=== PATIENT | male | born 1935 | race Caucasian/White ===

== ENCOUNTER 2020-02-05 08:59 | Outpatient (REF) | payer MEDICARE, SELFPAY ==
[2020-02-05 09:47] LABS: MANUAL DIFF FLAG NO
[2020-02-05 09:58] LABS: Basophils Percent Auto 0.3 % (0-2); Eosinophils Absolute Auto 0.2 X10*3/uL (0.0-0.4); Eosinophils Percent Auto 3.1 % (0-4); Hematocrit 42.4 % (42-52); Hemoglobin 14.1 g/dl (14.0-18.0); Imm Gran Abs Auto 0.03 X10*3/uL (0.00-0.03); Imm Gran Pct Auto 0.4 % (0.0-0.4); Lymphocytes Absolute Auto 1.3 X10*3/uL (1.2-4.9); Lymphocytes Percent Auto 19.9 % (20-40); Mean Corpuscular HGB Conc 33.3 g/dl (31.0-36.0); Mean Corpuscular Hemoglobin 32.6 pg (27.0-33.0); Mean Corpuscular Volume 98.1 fL (80-98); Monocytes Absolute Auto 0.6 X10*3/uL (0.1-1.2); Monocytes Percent Auto 8.9 % (2-11); Neutrophils Absolute Auto 4.6 X10*3/uL (2.0-8.3); Neutrophils Percent Auto 67.4 % (45-73); Platelet Count 266 X10*3/uL (160-400); Red Blood Count 4.32 X10*6/uL (4.60-5.80); Red Cell Distribution Width 11.9 % (11.0-16.0); White Blood Count 6.8 X10*3/uL (4.8-10.8)
[2020-02-05 10:32] LABS: Alanine Aminotransferase 22 U/L (0-40); Albumin Level 4.3 g/dL (3.5-5.0); Alkaline Phosphatase 106 U/L (39-117); Anion Gap 12 (12-20); Aspartate Amino Transferase 21 U/L (5-37); Bilirubin Total 1.1 mg/dL (0.0-1.0); Blood Urea Nitrogen 17 mg/dL (9-16); Calcium 9.1 mg/dL (8.4-10.2); Carbon Dioxide 27 mmol/L (22-29); Chloride 104 mmol/L (96-108); Cholesterol 145 mg/dL; Estimated Glomerular Filt Rate > 60; Glucose Fasting 100 mg/dL (60-99); HDL Cholesterol 51 mg/dL; LDL Cholesterol Calculated 83 mg/dl; Potassium 4.5 mmol/l (3.3-5.1); Sodium 138 mmol/L (135-145); Total Protein 6.7 g/dL (6.5-8.0); Triglycerides 57 mg/dL
[2020-02-05 10:44] LABS: Glucose Urine UA NEG (NEG); Leukocyte Esterase Urine NEG (NEG); Nitrite Urine NEG (NEG); Urine Blood NEG (NEG); Urine Ketones NEG (NEG); Urine Protein NEG (NEG-TRACE)
[2020-02-05 10:49] LABS: Appearance Urine CLEAR; Color Urine YELLOW
[2020-02-05 11:36] LABS: Prostate Specific Antigen Scr 5.25 ng/mL (<0.05-4.0)
== END 2020-02-05 09:00 | disposition home or self-care (01) ==
LOC: HO.10HDL 08:59
PROVIDERS: Visit Provider Internal Medicine
DX: N40.1 Benign prostatic hyperplasia with lower urinary tract symptoms (principal); K57.90 Diverticulosis of intestine, part unspecified, without perforation or abscess without bleeding; I10 Essential (primary) hypertension; Z12.5 Encounter for screening for malignant neoplasm of prostate
CPT/HCPCS: 36415; 80053; 80061; 81003; 84153; 85025

== ENCOUNTER 2020-05-27 09:22 | Outpatient (REF) | payer MEDICARE, SELFPAY ==
[2020-05-27 11:00] LABS: Anion Gap 14 (12-20); Blood Urea Nitrogen 17 mg/dL (9-16); Calcium 9.1 mg/dL (8.4-10.2); Carbon Dioxide 28 mmol/L (22-29); Chloride 103 mmol/L (96-108); Estimated Glomerular Filt Rate > 60; Glucose Random 92 mg/dL (60-115); Potassium 4.7 mmol/l (3.3-5.1); Sodium 140 mmol/L (135-145)
[2020-05-27 11:25] LABS: Prostate Specific Antigen Scr 7.19 ng/mL (<0.05-4.0)
== END 2020-05-27 09:23 | disposition home or self-care (01) ==
LOC: HO.10HDL 09:22
PROVIDERS: Visit Provider Internal Medicine
DX: R97.20 Elevated prostate specific antigen [PSA] (principal); I10 Essential (primary) hypertension; Z12.5 Encounter for screening for malignant neoplasm of prostate
CPT/HCPCS: 36415; 80048; 84153

== ENCOUNTER 2020-12-01 08:01 | Outpatient (REF) | payer MEDICARE, SELFPAY ==
[2020-12-01 10:35] LABS: MANUAL DIFF FLAG NO
[2020-12-01 10:45] LABS: Basophils Percent Auto 0.4 % (0-2); Eosinophils Absolute Auto 0.3 X10*3/uL (0.0-0.4); Hematocrit 43.1 % (42-52); Hemoglobin 14.1 g/dl (14.0-18.0); Imm Gran Abs Auto 0.04 X10*3/uL (0.00-0.03); Imm Gran Pct Auto 0.6 % (0.0-0.4); Lymphocytes Absolute Auto 1.7 X10*3/uL (1.2-4.9); Lymphocytes Percent Auto 23.7 % (20-40); Mean Corpuscular HGB Conc 32.7 g/dl (31.0-36.0); Mean Platelet Volume 10.5 fL (9.4-12.4); Monocytes Absolute Auto 0.7 X10*3/uL (0.1-1.2); Monocytes Percent Auto 9.9 % (2-11); Neutrophils Absolute Auto 4.3 X10*3/uL (2.0-8.3); Neutrophils Percent Auto 61.4 % (45-73); Platelet Count 264 X10*3/uL (160-400); Red Cell Distribution Width 12.4 % (11.0-16.0)
[2020-12-01 11:09] LABS: Alanine Aminotransferase 23 U/L (0-40); Albumin Level 4.3 g/dL (3.5-5.0); Alkaline Phosphatase 112 U/L (39-117); Anion Gap 12 (12-20); Aspartate Amino Transferase 23 U/L (5-37); Bilirubin Total 1.1 mg/dL (0.0-1.0); Blood Urea Nitrogen 15 mg/dL (9-16); Calcium 9.2 mg/dL (8.4-10.2); Carbon Dioxide 25 mmol/L (22-29); Chloride 105 mmol/L (96-108); Estimated Glomerular Filt Rate > 60; Glucose Random 103 mg/dL (60-115); Potassium 4.3 mmol/L (3.3-5.1); Sodium 138 mmol/L (135-145); Total Protein 6.9 g/dL (6.5-8.0)
[2020-12-01 11:15] LABS: Vitamin D 25-OH Total 44.3 ng/mL (>30)
== END 2020-12-01 08:02 | disposition home or self-care (01) ==
LOC: HO.10HDL 08:01
PROVIDERS: PCP Internal Medicine; Visit Provider Internal Medicine
DX: I10 Essential (primary) hypertension (principal); E55.9 Vitamin D deficiency, unspecified; K57.90 Diverticulosis of intestine, part unspecified, without perforation or abscess without bleeding
CPT/HCPCS: 36415; 80053; 82306; 85025

== ENCOUNTER 2021-04-02 11:27 | Outpatient (REF) | payer MEDICARE, SELFPAY ==
--- NOTE | ~2021-04-02 | XR_ITS ---
EXAMINATION: XR CHEST CLINICAL INFORMATION: Bronchitis. COMPARISON: 04/25/2019 chest radiographs. TECHNIQUE: 2 views of the chest were obtained. FINDINGS: The lungs are clear. There is mild elevation of the right hemidiaphragm without significant change. The cardiac mediastinal silhouette is unchanged. XR/XR chest 2V IMPRESSION: No acute cardiopulmonary process.
== END 2021-04-02 11:28 | disposition home or self-care (01) ==
LOC: HO.HMGCX 11:27
PROVIDERS: PCP Internal Medicine; Visit Provider Physician Assistant Medical
DX: Z13.89 Encounter for screening for other disorder (principal)
CPT/HCPCS: 71046

== ENCOUNTER 2021-04-02 13:14 | Outpatient (REF) | payer MEDICARE, SELFPAY | END 2021-04-02 13:15 | disposition home or self-care (01) | LOC: HO.LNP 13:14 | PROVIDERS: Visit Provider Physician Assistant Medical | DX: Z20.822 Contact with and (suspected) exposure to COVID-19 (principal) | CPT/HCPCS: 71046; U0003; U0005 ==

== ENCOUNTER 2021-04-08 08:40 | Outpatient (REF) | payer MEDICARE, SELFPAY ==
[2021-04-08 11:43] LABS: MANUAL DIFF FLAG NO
[2021-04-08 11:51] LABS: Basophils Percent Auto 0.3 % (0-2); Eosinophils Absolute Auto 0.2 X10*3/uL (0.0-0.4); Hematocrit 43.6 % (42.0-52.0); Hemoglobin 14.5 g/dl (14.0-18.0); Imm Gran Abs Auto 0.08 X10*3/uL (0.00-0.03); Imm Gran Pct Auto 1.1 % (0.0-0.4); Lymphocytes Absolute Auto 1.5 X10*3/uL (1.2-4.9); Lymphocytes Percent Auto 20.3 % (20-40); Mean Corpuscular HGB Conc 33.3 g/dl (31.0-36.0); Mean Corpuscular Hemoglobin 33.2 pg (27.0-33.0); Mean Corpuscular Volume 99.8 fL (80.0-98.0); Mean Platelet Volume 10.7 fL (9.4-12.4); Monocytes Absolute Auto 0.6 X10*3/uL (0.1-1.2); Monocytes Percent Auto 8.5 % (2-11); Neutrophils Absolute Auto 4.9 x10*3/uL (2.0-8.3); Neutrophils Percent Auto 66.8 % (45-73); Platelet Count 251 X10*3/uL (160-400); Red Blood Count 4.37 X10*6/uL (4.60-5.80); Red Cell Distribution Width 12.3 % (11.0-16.0); White Blood Count 7.4 X10*3/uL (4.8-10.8)
[2021-04-08 12:22] LABS: Alanine Aminotransferase 21 U/L (0-40); Albumin Level 4.1 g/dL (3.5-5.0); Alkaline Phosphatase 117 U/L (39-117); Anion Gap 13 (12-20); Aspartate Amino Transferase 23 U/L (5-37); Bilirubin Total 1.1 mg/dL (0.0-1.0); Blood Urea Nitrogen 15 mg/dL (9-16); Calcium 9.5 mg/dL (8.4-10.2); Carbon Dioxide 27 mmol/L (22-29); Chloride 105 mmol/L (96-108); Cholesterol 157 mg/dL; Estimated Glomerular Filt Rate > 60; Glucose Fasting 90 mg/dL (60-99); HDL Cholesterol 50 mg/dL; LDL Cholesterol Calculated 93 mg/dl; Potassium 4.2 mmol/L (3.3-5.1); Sodium 141 mmol/L (135-145); Total Protein 6.8 g/dL (6.5-8.0); Triglycerides 72 mg/dL
[2021-04-08 12:26] LABS: PSA,Total (Free>4and<10) 8.47 ng/mL (0.00-4.00)
[2021-04-11 15:02] LABS: Free Prostate Spec Ag 1.8 ng/mL; Percent Free Prostate Spec Ag 20 % (calc) (>25); Prostate Specific Ag Total 9.1 ng/mL (< OR = 4.0)
== END 2021-04-08 08:41 | disposition home or self-care (01) ==
LOC: HO.HMGCLDS 08:40
PROVIDERS: PCP Internal Medicine; Visit Provider Internal Medicine
DX: Z12.5 Encounter for screening for malignant neoplasm of prostate (principal); I10 Essential (primary) hypertension; R97.20 Elevated prostate specific antigen [PSA]; K57.90 Diverticulosis of intestine, part unspecified, without perforation or abscess without bleeding
CPT/HCPCS: 36415; 80053; 80061; 84153; 84154; 85025

== ENCOUNTER 2021-10-14 13:28 | Outpatient (REF) | payer MEDICARE, SELFPAY ==
[2021-10-17 11:22] LABS: Percent Free Prostate Spec Ag 20 % (calc) (>25); Prostate Specific Ag Total 9.8 ng/mL (< OR = 4.0)
== END 2021-10-14 13:29 | disposition home or self-care (01) ==
LOC: HO.HMGCLDS 13:28
PROVIDERS: Visit Provider Urology
DX: R97.20 Elevated prostate specific antigen [PSA] (principal); Z12.5 Encounter for screening for malignant neoplasm of prostate
CPT/HCPCS: 36415; 84154

== ENCOUNTER 2022-02-21 09:10 | Outpatient (REF) | payer MEDICARE, SELFPAY ==
[2022-02-21 11:06] LABS: MANUAL DIFF FLAG NO
[2022-02-21 11:35] LABS: Basophils Percent Auto 0.3 % (0-2); Eosinophils Absolute Auto 0.2 X10*3/uL (0.0-0.4); Eosinophils Percent Auto 3.1 % (0-4); Hematocrit 43.7 % (42.0-52.0); Hemoglobin 14.5 g/dl (14.0-18.0); Imm Gran Abs Auto 0.04 X10*3/uL (0.00-0.03); Imm Gran Pct Auto 0.7 % (0.0-0.4); Lymphocytes Absolute Auto 1.3 X10*3/uL (1.2-4.9); Lymphocytes Percent Auto 21.6 % (20-40); Mean Corpuscular HGB Conc 33.2 g/dl (31.0-36.0); Mean Corpuscular Hemoglobin 32.5 pg (27.0-33.0); Mean Platelet Volume 10.4 fL (9.4-12.4); Monocytes Absolute Auto 0.7 X10*3/uL (0.1-1.2); Monocytes Percent Auto 10.8 % (2-11); Neutrophils Absolute Auto 3.9 x10*3/uL (2.0-8.3); Neutrophils Percent Auto 63.5 % (45-73); Platelet Count 237 X10*3/uL (160-400); Red Blood Count 4.46 X10*6/uL (4.60-5.80); Red Cell Distribution Width 12.6 % (11.0-16.0); White Blood Count 6.1 X10*3/uL (4.8-10.8)
[2022-02-21 11:49] LABS: Anion Gap 16 (12-20); Blood Urea Nitrogen 16 mg/dL (9-16); Calcium 9.5 mg/dL (8.4-10.2); Carbon Dioxide 26 mmol/L (22-29); Chloride 103 mmol/L (96-108); Estimated Glomerular Filt Rate > 60; Glucose Random 99 mg/dL (60-115); Potassium 4.5 mmol/L (3.3-5.1); Sodium 140 mmol/L (135-145)
== END 2022-02-21 09:11 | disposition home or self-care (01) ==
LOC: HO.HMGCLDS 09:10
PROVIDERS: PCP Internal Medicine; Visit Provider Internal Medicine
DX: I10 Essential (primary) hypertension (principal); E55.9 Vitamin D deficiency, unspecified; Z86.73 Personal history of transient ischemic attack (TIA), and cerebral infarction without residual deficits
CPT/HCPCS: 36415; 80048; 82306; 85025

== ENCOUNTER 2022-05-08 10:23 | Outpatient (REF) | payer MEDICARE, SELFPAY | END 2022-05-08 10:24 | disposition home or self-care (01) | LOC: HO.10HDL 10:23 | PROVIDERS: Visit Provider Internal Medicine | DX: Z01.84 Encounter for antibody response examination (principal) | CPT/HCPCS: 36415; 86787 ==

== ENCOUNTER 2022-07-31 08:49 | Outpatient (REF) | payer MEDICARE, SELFPAY ==
[2022-07-31 11:15] LABS: MANUAL DIFF FLAG NO
[2022-07-31 12:00] LABS: Basophils Percent Auto 0.5 % (0-2); Eosinophils Absolute Auto 0.2 X10*3/uL (0.0-0.4); Eosinophils Percent Auto 2.7 % (0-4); Hematocrit 42.8 % (42.0-52.0); Hemoglobin 14.3 g/dl (14.0-18.0); Imm Gran Abs Auto 0.03 X10*3/uL (0.00-0.03); Imm Gran Pct Auto 0.5 % (0.0-0.4); Lymphocytes Absolute Auto 1.4 X10*3/uL (1.2-4.9); Lymphocytes Percent Auto 21.4 % (20-40); Mean Corpuscular HGB Conc 33.4 g/dl (31.0-36.0); Mean Corpuscular Hemoglobin 33.4 pg (27.0-33.0); Mean Platelet Volume 10.8 fL (9.4-12.4); Monocytes Absolute Auto 0.6 X10*3/uL (0.1-1.2); Neutrophils Absolute Auto 4.4 x10*3/uL (2.0-8.3); Neutrophils Percent Auto 65.9 % (45-73); Platelet Count 229 X10*3/uL (160-400); Red Blood Count 4.28 X10*6/uL (4.60-5.80); Red Cell Distribution Width 12.5 % (11.0-16.0); White Blood Count 6.6 X10*3/uL (4.8-10.8)
[2022-07-31 12:30] LABS: Alanine Aminotransferase 22 U/L (0-40); Alkaline Phosphatase 119 U/L (39-117); Anion Gap 13 (12-20); Aspartate Amino Transferase 20 U/L (5-37); Bilirubin Total 1.3 mg/dL (0.0-1.0); Blood Urea Nitrogen 19 mg/dL (9-16); Calcium 9.2 mg/dL (8.4-10.2); Carbon Dioxide 26 mmol/L (22-29); Chloride 105 mmol/L (96-108); Cholesterol 163 mg/dL; Estimated Glomerular Filt Rate > 60; Glucose Fasting 99 mg/dL (60-99); HDL Cholesterol 56 mg/dL; LDL Cholesterol Calculated 95 mg/dl; Potassium 4.2 mmol/L (3.3-5.1); Prostate Specific Antigen 11.65 ng/mL (<0.05-4.0); Sodium 140 mmol/L (135-145); Total Protein 6.4 g/dL (6.5-8.0); Triglycerides 62 mg/dL
== END 2022-07-31 08:50 | disposition home or self-care (01) ==
LOC: HO.HMGCLDS 08:49
PROVIDERS: PCP Internal Medicine; Visit Provider Internal Medicine
DX: Z00.00 Encounter for general adult medical examination without abnormal findings (principal); Z12.5 Encounter for screening for malignant neoplasm of prostate; Z86.73 Personal history of transient ischemic attack (TIA), and cerebral infarction without residual deficits
CPT/HCPCS: 36415; 80053; 80061; 84153; 85025

== ENCOUNTER 2022-09-03 23:07 | Emergency (ER) | payer MEDICARE, SELFPAY ==
--- NOTE | ~2022-09-03 | US_ITS ---
EXAMINATION: US VENOUS ULTRASOUND WITH DOPPLER LOWER EXTREMITY, RIGHT CLINICAL INFORMATION: Leg swelling COMPARISON: None available. TECHNIQUE: Ultrasound of the deep veins is performed from the hip to the calf with compression sonography and color and pulse Doppler assessment. Spectral analysis with color-flow imaging is performed. FINDINGS: There is normal venous compression and respiratory variation and augmented flow. The visualized common femoral vein, superficial femoral vein, profunda femoral vein, popliteal vein, and the trifurcation region shows no evidence of deep venous thrombosis. There is no significant popliteal fossa cyst. If the patient's symptoms persist, followup ultrasound in 5 days 7 days might be of value to exclude proximal propagation from a non-visualized calf vein. US/US venous duplex LE RT IMPRESSION: No DVT demonstrated in the right lower extremity.
[2022-09-03 23:09] VITALS: BP 130/80; PULSE 84; O2SAT 97
[2022-09-03 23:18] VITALS: BP 133/72; PULSE 74; RESP 16; TEMP 36.9; O2SAT 96; BMI 27.3
--- NOTE | 2022-09-03 23:42 | ECG_ITS ---
Test Reason : edema Blood Pressure : / mmHG Vent. 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 rate has decreased BY 36 BPM Right bundle branch block is now Present Referred By: Winnie Luis Electronically Signed By:AUDRA JOHNSTON
[2022-09-03 23:56] LABS: MANUAL DIFF FLAG NO
[2022-09-03 23:57] LABS: Basophils Percent Auto 0.3 % (0-2); Eosinophils Absolute Auto 0.2 X10*3/uL (0.0-0.4); Eosinophils Percent Auto 2.6 % (0-4); Hematocrit 40.6 % (42.0-52.0); Hemoglobin 13.4 g/dl (14.0-18.0); Imm Gran Abs Auto 0.05 X10*3/uL (0.00-0.03); Imm Gran Pct Auto 0.6 % (0.0-0.4); Lymphocytes Percent Auto 12.6 % (20-40); Mean Corpuscular Hemoglobin 32.4 pg (27.0-33.0); Mean Corpuscular Volume 98.3 fL (80.0-98.0); Mean Platelet Volume 10.2 fL (9.4-12.4); Monocytes Absolute Auto 0.7 X10*3/uL (0.1-1.2); Monocytes Percent Auto 9.4 % (2-11); Neutrophils Absolute Auto 5.8 x10*3/uL (2.0-8.3); Neutrophils Percent Auto 74.5 % (45-73); Platelet Count 220 X10*3/uL (160-400); Red Blood Count 4.13 X10*6/uL (4.60-5.80); Red Cell Distribution Width 12.4 % (11.0-16.0); White Blood Count 7.8 X10*3/uL (4.8-10.8)
[2022-09-04 00:19] LABS: Alanine Aminotransferase 23 U/L (0-40); Albumin Level 3.9 g/dL (3.5-5.0); Alkaline Phosphatase 114 U/L (39-117); Anion Gap 14 (12-20); Aspartate Amino Transferase 28 U/L (5-37); Bilirubin Direct 0.2 mg/dL (0.0-0.5); Bilirubin Total 0.7 mg/dL (0.0-1.0); Blood Urea Nitrogen 20 mg/dL (9-16); Calcium 9.1 mg/dL (8.4-10.2); Carbon Dioxide 23 mmol/L (22-29); Chloride 104 mmol/L (96-108); Creatinine Clr Calc Pharmacy 55.8; Estimated Glomerular Filt Rate > 60; Glucose Random 104 mg/dL (60-115); Potassium 4.8 mmol/L (3.3-5.1); Sodium 136 mmol/L (135-145); Total Protein 6.3 g/dL (6.5-8.0)
[2022-09-04 00:23] LABS: B Type Natriuretic Peptide 59 pg/mL (<100)
[2022-09-04 00:27] LABS: Troponin-I High Sensitivity 8.2 ng/L (<3.5-35.0)
[2022-09-04 00:33] VITALS: BP 142/88; PULSE 74; RESP 15; O2SAT 99
--- NOTE | 2022-09-04 01:42 | ED.EXTPRO ---
HPI - Extremity Problem General Chief complaint: Extremity Problem Stated complaint: Pedal Edema Time Seen by Provider: 09/03/22 23:11 History of Present Illness HPI Narrative: Patient is 87 years old history of having right leg swelling in the past. Usually walks with a walker. Family claims the right leg seems to be more swollen than usual. Sent in for further eval. Patient not on blood thinners. There is no trauma to the lower extremity. There is no history of DVT. There is no chest pain. There is no shortness of breath patient was sent in for further evaluation Related Data Home Medications Medication Instructions Recorded Confirmed alprazolam 0.25 mg tablet 0.25 mg PO BEDTIME PRN 04/02/21 cholecalciferol (vitamin D3) 25 25 mcg PO DAILY 04/02/21 mcg (1,000 unit) capsule fluticasone 250 mcg-salmeterol 50 1 inh inhalation BID 04/02/21 mcg/dose blistr powdr for inhalation (Advair Diskus) metoprolol succinate 50 mg 50 mg PO BID 04/02/21 tablet,extended release 24 hr multivitamin 1 tab PO DAILY 04/02/21 tamsulosin 0.4 mg capsule 0.4 mg PO BEDTIME 04/02/21 Previous Rx's Medication Instructions Recorded azithromycin 250 mg tablet See Rx Instructions PO .COMPLEX #6 04/02/21 tabs cromolyn 5.2 mg/spray (4 %) nasal 1 spray intranasal TID #26 mL 04/02/21 spray Allergies Allergy/AdvReac Type Severity Reaction Status Date / Time No Known Allergies Allergy Unverified 01/15/20 15:01 [No Known Allergies*] Review of Systems Review of Systems: No fever no chills no cough no congestion no chest pain. Yes all other systems are reviewed and are negative [facility] Past Medical History Attestation statement: The following information was validated with the patient. Social History Social History Advance Directives: No Advance Directives Information Provided: No Advance Directives Date on File: 02/05/20 Physical Exam Vital Signs: Vital Signs: Last Vital Signs Temp 98.5 F 09/03/22 23:18 Pulse 74 09/04/22 00:33 Resp 15 09/04/22 00:33 BP 142/88 H 09/04/22 00:33 Pulse Ox 99 09/04/22 00:33 O2 Del Method Room Air 09/04/22 00:33 BMI result Body Mass Index 27.3 Appearance: Alert. Oriented X3. No acute distress. Eyes: Pupils equal, round and reactive to light. ENT: Pharynx normal. Neck: Normal inspection. Neck supple. No lymph nodes noted. No crepitus CVS: Normal heart rate and rhythm. Pulses normal. Normal S1 and S2 Respiratory: No respiratory distress. Breath sounds normal. No Wheezing. No rales Abdomen: Soft and nontender. No rigidity. No distention. good BS x4 Skin: Skin warm and dry. Normal skin color. Normal skin turgor. Extremities: Examination of the right lower extremity showed 2+ pitting edema compared to 1+ on left side. Neuro: Oriented X 3. No motor deficit. No sensory deficit. Moving all extermities. No slurred speech Medical Decision Making Medical Decision Making [facility] Narrative: Patient is 87 years old presents today with having right leg swelling. Doppler of the right lower extremity was grossly negative for acute evidence of DVT. Patient's BMP is normal. No evidence for congestive heart failure. Patient's troponin is normal. Electrolytes unremarkable liver profile is normal no evidence for biliary disease. My interpretation patient's EKG showed a sinus pattern heart rate is 70 HI QRS QT with normal limits is no acute ST segment elevation noted. Patient was then ambulated. Baseline walks with a walker. Doing well. Will discharge patient home. In stable condition. Told to closely follow up on an outpatient basis. Differential Diagnosis Differential Diagnoses: The differential diagnosis associated with the presentation includes Congestive heart failure, liver disease, the vein thrombosis Lab Data [facility] Lab Attestation statement: I reviewed the patient's lab results. 09/03/22 23:51 09/03/22 23:51 Labs: Lab Results 09/03/22 09/03/22 09/03/22 Range/Units 23:51 23:51 23:51 WBC 7.8 (4.8-10.8) X10*3/uL RBC 4.13 L (4.60-5.80) X10*6/uL Hgb 13.4 L (14.0-18.0) g/dl Hct 40.6 L (42.0-52.0) % MCV 98.3 H (80.0-98.0) fL MCH 32.4 (27.0-33.0) pg MCHC 33.0 (31.0-36.0) g/dl RDW 12.4 (11.0-16.0) % Plt Count 220 (160-400) X10*3/uL MPV 10.2 (9.4-12.4) fL Immature Gran % (Auto) 0.6 H (0.0-0.4) % Neut % (Auto) 74.5 H (45-73) % Lymph % (Auto) 12.6 L (20-40) % Lewis % (Auto) 9.4 (2-11) % Eos % (Auto) 2.6 (0-4) % Baso % (Auto) 0.3 (0-2) % Lymph # (Auto) 1.0 L (1.2-4.9) X10*3/uL [place] # (Auto) 0.7 (0.1-1.2) X10*3/uL Eos # (Auto) 0.2 (0.0-0.4) X10*3/uL Baso # (Auto) 0.0 (0.0-0.2) X10*3/uL Abs Immat Gran (auto) 0.05 H (0.00-0.03) X10*3/uL Absolute Neuts (auto) 5.8 (2.0-8.3) x10*3/uL Absolute Nucleated RBC 0.000 (0.0-0.012) X10*3/uL Nucleated RBC % (auto) 0.0 (0.0-0.2) /100WBC Sodium 136 (135-145) mmol/L Potassium 4.8 (3.3-5.1) mmol/L Chloride 104 (96-108) mmol/L Carbon Dioxide 23 (22-29) mmol/L Anion Gap 14 (12-20) BUN 20 H (9-16) mg/dL Creatinine 0.98 (0.5-1.4) mg/dL Estim Creat Clear Calc 55.8 Estimated GFR > 60 Random Glucose 104 (60-115) mg/dL Calcium 9.1 (8.4-10.2) mg/dL Total Bilirubin 0.7 (0.0-1.0) mg/dL Direct Bilirubin 0.2 (0.0-0.5) mg/dL AST 28 (5-37) U/L ALT 23 (0-40) U/L Alkaline Phosphatase 114 (39-117) U/L Troponin I High Sens 8.2 (<3.5-35.0) ng/L B-Natriuretic Peptide (<100) pg/mL Total Protein 6.3 L (6.5-8.0) g/dL Albumin 3.9 (3.5-5.0) g/dL 09/03/22 Range/Units 23:51 WBC (4.8-10.8) X10*3/uL RBC (4.60-5.80) X10*6/uL Hgb (14.0-18.0) g/dl Hct (42.0-52.0) % MCV (80.0-98.0) fL MCH (27.0-33.0) pg MCHC (31.0-36.0) g/dl RDW (11.0-16.0) % Plt Count (160-400) X10*3/uL MPV (9.4-12.4) fL Immature Gran % (Auto) (0.0-0.4) % Neut % (Auto) (45-73) % Lymph % (Auto) (20-40) % [place] % (Auto) (2-11) % Eos % (Auto) (0-4) % Baso % (Auto) (0-2) % Lymph # (Auto) (1.2-4.9) X10*3/uL [place] # (Auto) (0.1-1.2) X10*3/uL Eos # (Auto) (0.0-0.4) X10*3/uL Baso # (Auto) (0.0-0.2) X10*3/uL Abs Immat Gran (auto) (0.00-0.03) X10*3/uL Absolute Neuts (auto) (2.0-8.3) x10*3/uL Absolute Nucleated RBC (0.0-0.012) X10*3/uL Nucleated RBC % (auto) (0.0-0.2) /100WBC Sodium (135-145) mmol/L Potassium (3.3-5.1) mmol/L Chloride (96-108) mmol/L Carbon Dioxide (22-29) mmol/L Anion Gap (12-20) BUN (9-16) mg/dL Creatinine (0.5-1.4) mg/dL Estim Creat Clear Calc Estimated GFR Random Glucose (60-115) mg/dL Calcium (8.4-10.2) mg/dL Total Bilirubin (0.0-1.0) mg/dL Direct Bilirubin (0.0-0.5) mg/dL AST (5-37) U/L ALT (0-40) U/L Alkaline Phosphatase (39-117) U/L Troponin I High Sens (<3.5-35.0) ng/L B-Natriuretic Peptide 59 (<100) pg/mL Total Protein (6.5-8.0) g/dL Albumin (3.5-5.0) g/dL Independent Interpretation I performed an independent interpretation of an: EKG Interpretation: My interpretation patient's EKG showed a sinus pattern heart rate 70 HI QRS QT within normal limits there is no acute ST segment elevation. Radiology Impression Discussion of test interpretation with radiology: I have reviewed the radiologist's reading. Radiologist Impression: Ultrasound was grossly negative Independent Historian Clinical information obtained from an independent historian. History obtained from or confirmed by: Spouse External Record Review External record reviewed: Inpatient record Chronic Conditions CVA Discharge Plan Discharge Clinical Impression: Lower extremity edema Patient Disposition: Home, Self-Care Instructions: Leg Edema (ED) Prescriptions: No Action fluticasone propion-salmeterol [Advair Diskus] 250-50 mcg/dose blister with device 1 inh inhalation BID metoprolol succinate 50 mg tablet extended release 24 hr 50 mg PO BID tamsulosin 0.4 mg capsule 0.4 mg PO BEDTIME alprazolam 0.25 mg tablet 0.25 mg PO BEDTIME PRN multivitamin Tablet 1 tab PO DAILY cholecalciferol (vitamin D3) 25 mcg (1,000 unit) capsule 25 mcg PO DAILY azithromycin 250 mg tablet See Rx Instructions PO .COMPLEX Qty: 6 0RF Rx Instructions: take 500 mg today (day 1), then 250 mg for 4 days (days 2-5) PO cromolyn 5.2 mg/spray (4 %) spray,non-aerosol 1 spray intranasal TID Qty: 26 1RF Referrals: Duncan Hodgson MD [Primary Care Provider] -
== END 2022-09-04 02:37 | disposition home or self-care (01) ==
PROVIDERS: Emergency Provider Emergency Medicine Emergency Medical Services; PCP Internal Medicine
DX: R60.0 Localized edema (principal); R06.02 Shortness of breath; I45.10 Unspecified right bundle-branch block; R94.31 Abnormal electrocardiogram [ECG] [EKG]; Z79.899 Other long term (current) drug therapy
CPT/HCPCS: 36415; 80048; 80076; 83880; 84484; 85025; 93005; 93971; 99284

== ENCOUNTER 2023-02-15 10:02 | Outpatient (REF) | payer MEDICARE, SELFPAY ==
[2023-02-15 14:10] LABS: Prostate Specific Antigen 12.91 ng/mL (<0.05-4.0)
[2023-02-15 14:23] LABS: Anion Gap 14 (12-20); Blood Urea Nitrogen 18 mg/dL (9-16); Calcium 9.8 mg/dL (8.4-10.2); Carbon Dioxide 26 mmol/L (22-29); Chloride 102 mmol/L (96-108); Estimated Glomerular Filt Rate > 60; Glucose Random 129 mg/dL (60-115); Potassium 4.8 mmol/L (3.3-5.1); Sodium 137 mmol/L (135-145)
== END 2023-02-15 10:03 | disposition home or self-care (01) ==
LOC: HO.HMGCLDS 10:02
PROVIDERS: PCP Internal Medicine; Visit Provider Internal Medicine
DX: I10 Essential (primary) hypertension (principal); R97.20 Elevated prostate specific antigen [PSA]; Z86.73 Personal history of transient ischemic attack (TIA), and cerebral infarction without residual deficits; Z12.5 Encounter for screening for malignant neoplasm of prostate
CPT/HCPCS: 36415; 80048; 84153

== ENCOUNTER 2023-07-24 09:16 | Outpatient (REF) | payer MEDICARE, SELFPAY ==
[2023-07-24 11:46] LABS: MANUAL DIFF FLAG NO
[2023-07-24 12:18] LABS: Basophils Percent Auto 0.3 % (0-2); Eosinophils Absolute Auto 0.2 X10*3/uL (0.0-0.4); Eosinophils Percent Auto 2.6 % (0-4); Hematocrit 44.2 % (42.0-52.0); Hemoglobin 14.7 g/dl (14.0-18.0); Imm Gran Abs Auto 0.04 X10*3/uL (0.00-0.03); Imm Gran Pct Auto 0.6 % (0.0-0.4); Lymphocytes Absolute Auto 1.2 X10*3/uL (1.2-4.9); Lymphocytes Percent Auto 17.6 % (20-40); Mean Corpuscular HGB Conc 33.3 g/dl (31.0-36.0); Mean Corpuscular Hemoglobin 32.8 pg (27.0-33.0); Mean Corpuscular Volume 98.7 fL (80.0-98.0); Mean Platelet Volume 10.8 fL (9.4-12.4); Monocytes Absolute Auto 0.6 X10*3/uL (0.1-1.2); Monocytes Percent Auto 8.9 % (2-11); Neutrophils Absolute Auto 4.6 x10*3/uL (2.0-8.3); Platelet Count 257 X10*3/uL (160-400); Red Blood Count 4.48 X10*6/uL (4.60-5.80); Red Cell Distribution Width 12.5 % (11.0-16.0); White Blood Count 6.6 X10*3/uL (4.8-10.8)
[2023-07-24 12:25] LABS: Estimated Average Glucose 105 mg/dL; Hemoglobin A1c % 5.3 % (<6.0)
[2023-07-24 12:43] LABS: Alanine Aminotransferase 21 U/L (0-40); Albumin Level 4.2 g/dL (3.5-5.0); Alkaline Phosphatase 124 U/L (39-117); Anion Gap 12 (12-20); Aspartate Amino Transferase 22 U/L (5-37); Bilirubin Total 1.2 mg/dL (0.0-1.0); Blood Urea Nitrogen 18 mg/dL (9-16); Calcium 9.7 mg/dL (8.4-10.2); Carbon Dioxide 29 mmol/L (22-29); Chloride 104 mmol/L (96-108); Cholesterol 165 mg/dL (<200); Estimated Glomerular Filt Rate > 60; Glucose Fasting 103 mg/dL (60-99); HDL Cholesterol 63 mg/dL (>40); LDL Cholesterol Calculated 92 mg/dL (<100); Potassium 4.3 mmol/L (3.3-5.1); Sodium 141 mmol/L (135-145); Total Protein 7.2 g/dL (6.5-8.0); Triglycerides 52 mg/dL (<150)
== END 2023-07-24 09:17 | disposition home or self-care (01) ==
LOC: HO.HMGCLDS 09:16
PROVIDERS: PCP Internal Medicine; Visit Provider Internal Medicine
DX: I10 Essential (primary) hypertension (principal); R73.03 Prediabetes; J45.909 Unspecified asthma, uncomplicated; Z86.73 Personal history of transient ischemic attack (TIA), and cerebral infarction without residual deficits
CPT/HCPCS: 36415; 80053; 80061; 83036; 85025

== ENCOUNTER 2023-09-03 09:34 | Emergency (ER) | payer MEDICARE, SELFPAY ==
[2023-09-03] VITALS (9 sets, daily range): BP systolic 146–172; BP diastolic 66–82; PULSE 64–85; RESP 16–20; TEMP 36.6–36.9; O2SAT 94–97; BMI 25.7
--- NOTE | 2023-09-03 | ECG_ITS ---
Test Reason : GENERAL WEAKNESS Blood Pressure : / mmHG Vent. 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
--- NOTE | ~2023-09-03 | XR_ITS ---
EXAMINATION: XR HIP, RIGHT CLINICAL INFORMATION: Pain COMPARISON: CT MRN x-ray of the right hip and femur from 2018 TECHNIQUE: Two views of the right hip. One view of the pelvis FINDINGS: There are mild degenerative changes of the right hip joint with joint space narrowing and small osteophytes. No fracture or dislocation. 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 Normal pelvis. Degenerative changes of the lower lumbar spine. Mild atherosclerotic disease. XR/XR hip RT w PEL1V IMPRESSION: Mild right hip arthritis. No fracture or dislocation.
[2023-09-03 09:53] LABS: MANUAL DIFF FLAG NO
[2023-09-03 09:55] LABS: Basophils Percent Auto 0.4 % (0-2); Eosinophils Absolute Auto 0.1 X10*3/uL (0.0-0.4); Eosinophils Percent Auto 1.5 % (0-4); Hematocrit 37.3 % (42.0-52.0); Imm Gran Abs Auto 0.07 X10*3/uL (0.00-0.03); Imm Gran Pct Auto 0.8 % (0.0-0.4); Lymphocytes Absolute Auto 0.8 X10*3/uL (1.2-4.9); Lymphocytes Percent Auto 9.3 % (20-40); Mean Corpuscular HGB Conc 34.9 g/dl (31.0-36.0); Mean Corpuscular Hemoglobin 33.8 pg (27.0-33.0); Mean Corpuscular Volume 96.9 fL (80.0-98.0); Mean Platelet Volume 9.9 fL (9.4-12.4); Monocytes Absolute Auto 0.7 X10*3/uL (0.1-1.2); Monocytes Percent Auto 8.3 % (2-11); Neutrophils Absolute Auto 6.6 x10*3/uL (2.0-8.3); Neutrophils Percent Auto 79.7 % (45-73); Platelet Count 251 X10*3/uL (160-400); Red Blood Count 3.85 X10*6/uL (4.60-5.80); Red Cell Distribution Width 12.3 % (11.0-16.0); White Blood Count 8.3 X10*3/uL (4.8-10.8)
[2023-09-03 10:14] LABS: B Type Natriuretic Peptide 187 pg/mL (<100)
[2023-09-03 10:30] LABS: Appearance Urine Clear; Color Urine Yellow; Glucose Urine UA Negative (Negative); Leukocyte Esterase Urine Trace (Negative); Nitrite Urine Negative (Negative); PH 7.5 (5.0-9.0); Specific Gravity - Urine 1.015 (1.005-1.025); UMIC TRIGGER UACC YES; Urine Blood Negative (Negative); Urine Ketones Negative (Negative); Urine Protein 30 (1+) mg/dL (Neg-Trace)
[2023-09-03 10:34] LABS: Bacteria Urine None Seen (None Seen); Hyaline Casts Urine 0-2 /LPF (0-2); RBC Urine 0-2 /HPF (0-2); Squamous Epithelial Cell Urine 0-2 /HPF (0-2); WBC Urine 0-5 /HPF (0-5)
--- NOTE | 2023-09-03 10:55 | PC.NURSE ---
a&ox4. vss and up to date. pt biba from home d/t lower back pain that radiates to right hip as well as weakness. pt had an unwitnessed mechanical fall at home x 1 week ago. -headstrike, -loc, -thinners. pt's bedside states that he became weak in the legs, put back against the wall and lowered himself to the ground. pt's states pt was ambulating today when it seemed that his legs were becoming weak so she sat him down and called EMS. pt also verbalizing increase in sob lately. sx worsen w/ movement. 20gIV placed in the left forearm - labs obtained/sent to lab. UA/ekg obtained sent to lab. no sob/wob noted. respirations even and unlabored. pt waiting to be seen by ED provider. bedside for support. plan of care ongoing. call leiva placed within reach.
[2023-09-03 11:37] LABS: Alanine Aminotransferase 25 U/L (0-40); Albumin Level 3.5 g/dL (3.5-5.0); Alkaline Phosphatase 100 U/L (39-117); Anion Gap 13 (12-20); Aspartate Amino Transferase 27 U/L (5-37); Bilirubin Total 0.9 mg/dL (0.0-1.0); Blood Urea Nitrogen 16 mg/dL (9-16); Calcium 9.1 mg/dL (8.4-10.2); Carbon Dioxide 23 mmol/L (22-29); Chloride 106 mmol/L (96-108); Creatinine Clr Calc Pharmacy 70.1; Estimated Glomerular Filt Rate > 60; Glucose Random 105 mg/dL (60-115); Potassium 4.1 mmol/L (3.3-5.1); Sodium 138 mmol/L (135-145); Total Protein 6.3 g/dL (6.5-8.0)
[2023-09-03 11:43] LABS: Troponin-I High Sensitivity 9.6 ng/L (<3.5-35.0)
--- NOTE | 2023-09-03 13:58 | ED_ITS ---
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 Related Data Home Medications ?Medication ?Instructions ?Recorded ?Confirmed alprazolam 0.25 mg tablet 0.25 mg PO BEDTIME PRN 04/02/21 cholecalciferol (vitamin D3) 25 25 mcg PO DAILY 04/02/21 mcg (1,000 unit) capsule fluticasone 250 mcg-salmeterol 50 1 inh inhalation BID 04/02/21 mcg/dose blistr powdr for inhalation (Advair Diskus) metoprolol succinate 50 mg 50 mg PO BID 04/02/21 tablet,extended release 24 hr multivitamin 1 tab PO DAILY 04/02/21 tamsulosin 0.4 mg capsule 0.4 mg PO BEDTIME 04/02/21 Previous Rx's ?Medication ?Instructions ?Recorded azithromycin 250 mg tablet See Rx Instructions PO .COMPLEX #6 04/02/21 tabs cromolyn 5.2 mg/spray (4 %) nasal 1 spray intranasal TID #26 mL 04/02/21 spray Allergies Allergy/AdvReac Type Severity Reaction Status Date / Time No Known Allergies Allergy Verified 09/03/23 09:42 [No Known Allergies*] Review of Systems 2 Review of Systems: Pertinent positives and negatives as stated in HPI [facility] Past Medical History Source: nursing notes reviewed Social History Social History Smoked in Last 30 Days: No Use of substances other than those prescribed or required for medical reasons: No Advance Directives: No Advance Directives Information Provided: Yes Advance Directives Date on File: 02/05/20 Do you have a plan to hurt others: No Plan Physical Exam ED Vital Signs: Vital Signs - 24 hr 09/03/23 09:44 09/03/23 10:00 09/03/23 11:30 Temperature 98.1 F 97.9 F 97.9 F Pulse Rate 85 78 79 Respiratory Rate 16 18 16 Blood Pressure 146/66 H 155/81 H Pulse Oximetry 96 95 95 Oxygen Delivery Method Room Air Room Air Room Air BMI result Body Mass Index 25.7 VITAL SIGNS: Reviewed. GENERAL: Well developed, well nourished, in no acute distress. HEAD: Normocephalic/atraumatic EYES: PERRLA, EOMI EARS: Ext canals without abnormality NOSE: Nares patent bilateral OROPHARYNX: no oral lesions noted, posterior pharynx clear NECK: Supple, no adenopathy LUNGS: Normal breath sounds. No adventitious sounds or accessory muscle use. SpO2<95> CARDIOVASCULAR: Regular rate and rhythm without noted murmurs ABDOMEN: Soft, non-tender, non-distended with bowel sounds. GLUTEUS: There is reproducible pain on palpation over superior aspect of right gluteus, no tenderness to palpation over greater trochanter/ASIS MUSCULOSKELETAL: No tenderness, deformities, or effusions noted on gross inspection. EXTREMITIES: No cyanosis, clubbing or edema. SKIN: Inspection of the skin reveals no rashes NEUROLOGIC: Alert and oriented x 4. Strength and sensation to light touch were grossly intact x 4, but asymmetrical with the right being stronger than the left at baseline. Medical Decision Making Medical Decision Making [facility] Narrative: 88-year-old male with history and clinical presentation, DDX: No clinical suspicion for hip/pelvis fracture, highly suspicious for muscle strain/sciatica, patient provided with combination analgesics and lidocaine patch. I reviewed all investigations and hematologic indices are negative for leukocytosis, there is a stable normocytic anemia and no thrombocytopenia. Chemistry indices are negative for CHAVEZ or electrolyte/liver enzyme derangements, there is a mild elevation of BNP, patient will receive 20 cc Lasix and otherwise will receive combination analgesics and a lidocaine patch. Consult for physical therapy and case management placed. Patient is otherwise medically cleared for further evaluation by physical therapy and case management. As after discussion patient will be going to short-term rehab. Patient placed in physician observation because the patient needed more time for evaluation by physical therapy and case management. At the time observation was started the patient's vital signs were stable, patient is alert and oriented but slightly agitated, neuro: Nonfocal, CV RRR, lungs clear Differential Diagnosis Differential Diagnoses: The differential diagnosis associated with the presentation includes Please see the discussion above Admission/Observation Consideration of admission/observation: Escalation of care including admission/observation considered Please see the discussion above Consult Healthcare Provider Management of the patient was discussed with: Virtual Reality Specialist Please see the discussion above Lab Data MDM Lab Attestation statement: I reviewed the patient's lab results. Please see the discussion above 09/03/23 09:50 09/03/23 09:50 Labs: Lab Results 09/03/23 09/03/23 Range/Units 09:50 10:14 WBC 8.3 (4.8-10.8) X10*3/uL RBC 3.85 L (4.60-5.80) X10*6/uL Hgb 13.0 L (14.0-18.0) g/dl Hct 37.3 L (42.0-52.0) % MCV 96.9 (80.0-98.0) fL MCH 33.8 H (27.0-33.0) pg MCHC 34.9 (31.0-36.0) g/dl RDW 12.3 (11.0-16.0) % Plt Count 251 (160-400) X10*3/uL MPV 9.9 (9.4-12.4) fL Immature Gran % (Auto) 0.8 H (0.0-0.4) % Neut % (Auto) 79.7 H (45-73) % Lymph % (Auto) 9.3 L (20-40) % [place] % (Auto) 8.3 (2-11) % Eos % (Auto) 1.5 (0-4) % Baso % (Auto) 0.4 (0-2) % Lymph # (Auto) 0.8 L (1.2-4.9) X10*3/uL [place] # (Auto) 0.7 (0.1-1.2) X10*3/uL Eos # (Auto) 0.1 (0.0-0.4) X10*3/uL Baso # (Auto) 0.0 (0.0-0.2) X10*3/uL Abs Immat Gran (auto) 0.07 H (0.00-0.03) X10*3/uL Absolute Neuts (auto) 6.6 (2.0-8.3) x10*3/uL Absolute Nucleated RBC 0.000 (0.0-0.012) X10*3/uL Nucleated RBC % (auto) 0.0 (0.0-0.2) /100WBC Sodium 138 (135-145) mmol/L Potassium 4.1 (3.3-5.1) mmol/L Chloride 106 (96-108) mmol/L Carbon Dioxide 23 (22-29) mmol/L Anion Gap 13 (12-20) BUN 16 (9-16) mg/dL Creatinine 0.79 (0.5-1.4) mg/dL Estim Creat Clear Calc 70.1 Estimated GFR > 60 Random Glucose 105 (60-115) mg/dL Calcium 9.1 D (8.4-10.2) mg/dL Total Bilirubin 0.9 (0.0-1.0) mg/dL AST 27 (5-37) U/L ALT 25 (0-40) U/L Alkaline Phosphatase 100 (39-117) U/L Troponin I High Sens 9.6 (<3.5-35.0) ng/L B-Natriuretic Peptide 187 H (<100) pg/mL Total Protein 6.3 L (6.5-8.0) g/dL Albumin 3.5 (3.5-5.0) g/dL Urine Color Yellow Urine Appearance Clear Urine pH 7.5 (5.0-9.0) Ur Specific [place] 1.015 (1.005-1.025) Urine Protein 30 (1+) H (Neg-Trace) mg/dL Urine Glucose (UA) Negative (Negative) mg/dL Urine Ketones Negative (Negative) mg/dL Urine Blood Negative (Negative) Urine Nitrite Negative (Negative) Ur Leukocyte Esterase Trace H (Negative) Urine RBC 0-2 (0-2) /HPF Urine WBC 0-5 (0-5) /HPF Ur Squamous Epith Cells 0-2 (0-2) /HPF Urine Bacteria None Seen (None Seen) Hyaline Casts 0-2 (0-2) /LPF Independent Interpretation I performed an independent interpretation of an: EKG Interpretation: Normal sinus rhythm, RBBB at baseline, HR-81, no STEMI, HI/QTC is within normal limits. No significant changes when compared to prior. External Record Review External record reviewed: Outpatient record, Prior outpatient labs and Prior outpatient radiology Chronic Conditions Patient?s care impacted by: Hypertension Prior CVA Critical Care Time Critical Care Time Critical Care Time: Yes Total Critical Care Time: 60 Attestation: I personally attest to this time spent taking care of the patient. Discharge Plan Discharge Clinical Impression: CHF (congestive heart failure), Sciatica, Muscle strain Patient Disposition: Still a Patient Prescriptions: No Action fluticasone propion-salmeterol [Advair Diskus] 250-50 mcg/dose blister with device 1 inh inhalation BID metoprolol succinate 50 mg tablet extended release 24 hr 50 mg PO BID tamsulosin 0.4 mg capsule 0.4 mg PO BEDTIME alprazolam 0.25 mg tablet 0.25 mg PO BEDTIME PRN multivitamin Tablet 1 tab PO DAILY cholecalciferol (vitamin D3) 25 mcg (1,000 unit) capsule 25 mcg PO DAILY azithromycin 250 mg tablet See Rx Instructions PO .COMPLEX Qty: 6 0RF Rx Instructions: take 500 mg today (day 1), then 250 mg for 4 days (days 2-5) PO cromolyn 5.2 mg/spray (4 %) spray,non-aerosol 1 spray intranasal TID Qty: 26 1RF Print Language: Albanian
[2023-09-03] MEDS: Acetaminophen 325 MG TABLET 975 MG PO (14:57)
[2023-09-03] MEDS: Ibuprofen 400 MG TABLET PO (14:58)
[2023-09-03] MEDS: Lidocaine 4 % Patch ADH..PATCH 1 PATCH TRANSDERMA (14:58)
[2023-09-03] MEDS: Furosemide 20 MG/2 ML VIAL IVPUSH (15:18)
--- NOTE | 2023-09-03 15:26 | PC.NURSE ---
delay in medication administration d/t emergency w/ different pt. /pt aware of plan of care moving forward at this time.
--- NOTE | 2023-09-03 15:44 | PC.NURSE ---
med rec completed. provider aware.
--- NOTE | 2023-09-03 16:13 | MHC.CM.ED ---
Receivede case management consult from Dr Sánchez. Patient came to ER due to back pain and weakness. Work up essentially negative. Physical therapy eval completed. Acute rehab is recommended. Met with patient and , Diana in regards to d/c planning. Patient lives with Diana. ambulates with a walker and had no services prior to coming to the ER. PCP verified. Copy of HCP verified to be on file. Patient has been to [facility] in the past. Patient and Diana agreeable to all 3 acute rehab facilities. [facility] is [facility]st choice. Referral made via [facility]. Continue to monitor for d/c needs.
--- NOTE | 2023-09-03 16:38 | PC.NURSE ---
vss and up to date. pt evaluated by PT/seen by CM. aware of plan of care moving forward.
--- NOTE | 2023-09-03 19:19 | PHA.MEDREC ---
Pharmacy Consult ? Medication Reconciliation Pharmacy has reviewed the medication reconciliation completed by nursing.
[2023-09-03] MEDS: Cholecalciferol (Vitamin D3) 25 MCG TABLET PO (19:40)
[2023-09-03] MEDS: Multivitamin TABLET 1 TAB PO (19:40)
[2023-09-03] MEDS: Metoprolol Tartrate 50 MG TABLET PO (21:12)
[2023-09-03] MEDS: Tamsulosin HCL 0.4 MG CAPSULE PO (21:13)
--- NOTE | 2023-09-03 21:16 | MHC.EDTECH ---
Pt arrived to ed overflow and was incontinent of urine. This tech and another tech did a complete bed change. PT has a urinal on bedside table. Call light was handed directly to PT. Will keep monitering
--- NOTE | 2023-09-03 21:24 | PC.NURSE ---
lab called for a recollect for a covid now swab.
--- NOTE | 2023-09-03 22:23 | PC.NURSE ---
RT called for inhaler first dose
[2023-09-03 23:08] LABS: Influenza A PCR NEGATIVE (Negative); Influenza B PCR NEGATIVE (Negative); Resp Syncy Virus RNA Qual PCR NEGATIVE (Negative); SARS COV2 PCR INHOUSE NEGATIVE (Negative)
[2023-09-04 05:15] VITALS: BP 166/88; PULSE 58; RESP 19; TEMP 36.7; O2SAT 98
[2023-09-04] MEDS: Fluticasone/Vilanterol 100/25 BLST.W.DEV 1 PUFF INHALE (07:39)
[2023-09-04 07:41] VITALS: PULSE 83; RESP 18; O2SAT 98
--- NOTE | 2023-09-04 09:40 | MHC.CM.PN ---
Patient remains in ER overflow. [facility] and [facility] are not able to offer a bed. [facility] can offer a bed. Patient's , Diana, aware and accepts bed at [facility]. Patient can leave at 1230pm. Shilpi ESCALERA booked. [facility] with chart. Patient, Yanira Ortiz RN and Brinda RM aware. Continue to monitor for d/c needs.
[2023-09-04 09:43] VITALS: BP 166/88; PULSE 68
[2023-09-04] MEDS: Cholecalciferol (Vitamin D3) 25 MCG TABLET PO (09:43)
[2023-09-04] MEDS: Metoprolol Tartrate 50 MG TABLET PO (09:43)
[2023-09-04] MEDS: Multivitamin TABLET 1 TAB PO (09:43)
[2023-09-04 12:49] VITALS: BP 140/80; PULSE 80; RESP 14; TEMP 36.8; O2SAT 98
== END 2023-09-04 12:50 | disposition other institution (70) ==
PROVIDERS: Emergency Provider Student in an Organized Health Care Education/Training Program; PCP Internal Medicine
DX: I11.0 Hypertensive heart disease with heart failure (principal); I50.9 Heart failure, unspecified; M54.30 Sciatica, unspecified side; S39.012A Strain of muscle, fascia and tendon of lower back, initial encounter; X58.XXXA Exposure to other specified factors, initial encounter; Y93.9 Activity, unspecified; Y92.9 Unspecified place or not applicable; Y99.9 Unspecified external cause status; I63.89 Other cerebral infarction; G81.94 Hemiplegia, unspecified affecting left nondominant side; R26.2 Difficulty in walking, not elsewhere classified; Z03.818 Encounter for observation for suspected exposure to other biological agents ruled out
CPT/HCPCS: 0241U; 36415; 73502; 80053; 81001; 83880; 84484; 85025; 87635; 93005; 96374; 97162; 99285; J1940

== ENCOUNTER → 2023-09-03 09:52 | Outpatient (BNV) | payer MEDICARE, SELFPAY | PROVIDERS: PCP Internal Medicine; Visit Provider Internal Medicine Cardiovascular Disease | DX: R94.31 Abnormal electrocardiogram [ECG] [EKG] (principal) | CPT/HCPCS: 93010 ==

== ENCOUNTER 2024-05-13 10:15 | Outpatient (REF) | payer MEDICARE, SELFPAY ==
--- OUTSIDE RECORDS SUMMARY | 2024-05-13 11:47 | XMS_ITS | Patient Health Record ---
Author Organization [facility] Address [address] [place] [address] Care Team Providers Care Certified Professional Ergonomist Name Role Phone Duncan Hodgson MD Primary Care Provider Unavaila Yelena Turner Unavailable [phone] Allergies No Known Allergies Reason For Referral No Information Medications Medication SIG (Take, Route, Frequency, Duration) Notes Start Date End Date Status vitamin D Active Multi Vitamin Daily Active Metoprolol Succinate twice a day Active Flomax Active [place] 3-6-9 Complex Not-Taking Aspirin 81 MG 1 tablet Orally Once a day for 30 day(s) Not-Taking Cephalexin 500 MG 1 capsule Orally twi ce a day for 10 days 12/11/2022 Not-Taking Immunizations Vaccine Route Administration Date Status Comme nts Influenza Unknown 02/21/2018 Administered Influenza Unknown 02/12/2019 Administered Social History Tobacco Use: Social History Observation Description Date Details (start date - stop date) Never Smoker NA - NA Tobacco Use/Smoking Question Answer Notes Are you a: nonsmoker Additional Findings: Tobacco Non-User Current no n-smoker Tobacco use other than smoking: Question Answer Notes Are you an other tobacco user? No AUDIT-C (Standard) Question Answer Notes Did you have a drink containing alcohol in the p ast year? 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) Active confirmed Resistant to previous conservative treatment Problem Atherosclerosis of solomon arteries of the extremities (144391149026859) Atherosclerosis of solomon artery of both lower extremities, with unspecified presence of clinical manifestation (I70.203) Active confirmed Q7(A), Q8(2B), Q9(1B,2C) Problem 41176983850073329 Ulcer of left midfoot limited to breakdown of skin (L97.421) Active confirmed Response to treatment - Improvement Problem [id number] Essential hypertension (I10) Active confirmed Vital Signs Blood pressure diastolic 60 mm Hg 04/29/2024 Height 5 ft 10 in in 04/29/2024 Blood pressure systolic 170 mm Hg 04/29/2024 Weight 162 lbs 04/29/2024 BMI 23.24 kg/m2 04/29/2024 Procedures Procedure Date Ordered Date Performed Result Body Sit e 91009-HTZIJTS NAIL, 6 OR MORE 06/11/2023 N/A 26269- Debride <25 sq cm 06/11/2023 N/A 33427-KLZVKDL NAIL, 6 OR MORE 08/23/2023 N/A 00469-Wnpkreoq Plate 08/23/2023 N/A 00741- Debride <25 sq cm 08/23/2023 N/A 19163-ASTCGBH NAIL, 6 OR MORE 11/21/2023 N/A 78809-Nqfaqzow Plate 11/21/2023 N/A 03620-FDYJ SKIN LESIONS, OVER 4 11/21/2023 N/A 89397-EGQACAI NAIL, 6 OR MORE 02/04/2024 N/A 64506 I&D ABSCESS- SIMPLE,SINGLE 02/04/2024 N/A 29867-QPEH SKIN LESIONS, OVER 4 02/04/2024 N/A 55908-IBOBODN NAIL, 6 OR MORE 04/29/2024 N/A 94112-RASQ SKIN LESIONS, OVER 4 04/29/2024 N/A Encounters Encounter Location Date Provider Diagnosis [facility] [address] [address] 06/11/2023 Yelena Black Tinea unguium B35.1 ; Pain in right toe(s) M79.674 ; Pain in left toe(s) M79.675 and Ulcer of left midfoot limited to breakdown of skin L97.421 [facility] [address] [address] 08/23/2023 Yelena Black Tinea unguium B35.1 ; Pain in right toe(s) M79.674 ; Pain in left toe(s) M79.675 ; Ulcer of left midfoot limited to breakdown of skin L97.421 and Ingrown nail L60.[address] [address] 11/21/2023 Yelena Black Tinea unguium B35.1 ; Unspecified atherosclerosis of solomon arteries of extremities, bilateral legs I70.203 ; Pain in right toe(s) M79.674 ; Pain in left toe(s) M79.675 and Ingrown nail L60.[address] [address] 02/04/2024 Yelena Black Tinea unguium B35.1 ; Abscess of toe, right L02.611 ; Pain in right toe(s) M79.674 ; Pain in left toe(s) M79.675 and Atherosclerosis of solomon artery of both lower extremities, with unspecified presence of clinical manifestation I70.[address] [address] 04/29/2024 Yelena Black Tinea unguium B35.1 ; Atherosclerosis of solomon artery of both lower extremities, with unspecified presence of clinical manifestation I70.203 ; Pain in right toe(s) M79.674 and Pain in left toe(s) M79.[address] [address] 06/11/2023 Yelena Black [address] [address] 01/02/2024 Yelena Black Assessments Encounter Date Diagnosis (ICD Code) Assessment Notes Treatment Notes Treatment Clinical Notes Section Notes 06/11/2023 Tinea unguium (ICD-10 - B35.1) 06/11/2023 Pain in right toe(s) (ICD-10 - M79.674) 08/23/2023 Tinea unguium (ICD-10 - B35.1) 08/23/2023 Pain in right toe(s) (ICD-10 - M79.674) 11/21/2023 Tinea unguium (ICD-10 - B35.1) 11/21/2023 Unspecified atherosclerosis of solomon arteries of extremities, bilateral legs (ICD-10 - I70.203) 02/04/2024 Tinea unguium (ICD-10 - B35.1) 02/04/2024 Abscess of toe, right (ICD-10 - L02.611) Patient Educated with: WOUND CARE INSTRUCTIONS. pdf (WOUND CARE INSTRUCTIONS. pdf) 04/29/2024 Tinea unguium (ICD-10 - B35.1) 04/29/2024 Atherosclerosis of solomon artery of both lower extremities, with unspecified presence of clinical manifestation (ICD-10 - I70.203) Q7(A), Q8(2B), Q9(1B,2C) 04/29/2024 Pain in right toe(s) (ICD-10 - M79.674) 02/04/2024 Pain in right toe(s) (ICD-10 - M79.674) 11/21/2023 Pain in right toe(s) (ICD-10 - M79.674) 08/23/2023 Pain in left toe(s) (ICD-10 - M79.675) 06/11/2023 Pain in left toe(s) (ICD-10 - M79.675) 06/11/2023 Ulcer of left midfoot limited to breakdown of skin (ICD-10 - L97.421) 08/23/2023 Ulcer of left midfoot limited to breakdown of skin (ICD-10 - L97.421) Response to treatment - Improvement 11/21/2023 Pain in left toe(s) (ICD-10 - M79.675) 02/04/2024 Pain in left toe(s) (ICD-10 - M79.675) 04/29/2024 Pain in left toe(s) (ICD-10 - M79.675) 02/04/2024 Atherosclerosis of solomon artery of both lower extremities, with unspecified presence of clinical manifestation (ICD-10 - I70.203) Q7(A), Q8(2B), Q9(1B,2C) 11/21/2023 Ingrown nail (ICD-10 - L60.0) 08/23/2023 Ingrown nail (ICD-10 - L60.0) 04/29/2024 Other Plan Of Treatment Pending Test Test Name Order Date 55223-YJSCKSC NAIL, 6 OR MORE 01/30/2011 38201-EXRFDSB NAIL, 6 OR MORE 05/03/2011 20946-CEXSQAO NAIL, 6 OR MORE 07/12/2011 87204-QLMRZWR NAIL, 6 OR MORE 01/03/2012 32742-QRHOXKC NAIL, 6 OR MORE 02/03/2013 82415-AVJDOJP NAIL, 6 OR MORE 05/12/2013 06713-FUYERDL NAIL, 6 OR MORE 06/24/2014 74023-IFZHODY NAIL, 6 OR MORE 09/02/2014 27273-OZUZRQK NAIL, 6 OR MORE 12/16/2014 01869-IDTNRKV NAIL, 6 OR MORE 03/22/2015 51368-OVDHLLN NAIL, 6 OR MORE 06/23/2015 15495-SYVPHEW NAIL, 6 OR MORE 09/22/2015 77461-PAJSQXD NAIL, 6 OR MORE 12/02/2015 33873-GRCMYXI NAIL, 6 OR MORE 02/03/2016 71383-IQVDEXO NAIL, 6 OR MORE 05/08/2016 70763-TFTKESK NAIL, 6 OR MORE 08/10/2016 07621-VUASWOG NAIL, 6 OR MORE 11/13/2016 60693-IXBJGII NAIL, 6 OR MORE 02/12/2017 28610-WSJFAXG NAIL, 6 OR MORE 05/21/2017 62304-UFBXBZY NAIL, 6 OR MORE 08/20/2017 22074-XQTZBRY NAIL, 6 OR MORE 11/22/2017 99156-KHEWWPF NAIL, 6 OR MORE 02/21/2018 00052-OXTOJVG NAIL, 6 OR MORE 05/23/2018 12040-UAFUGAS NAIL, 6 OR MORE 08/22/2018 93790-MYPHAKV NAIL, 6 OR MORE 11/18/2018 91849-KSGHAYU NAIL, 6 OR MORE 02/20/2019 00729-OGSRKQM NAIL, 6 OR MORE 05/26/2019 21873-ATZKJCD NAIL, 6 OR MORE 08/25/2019 67334-CCKUWKT NAIL, 6 OR MORE 12/01/2019 09343-BTJLRJE NAIL, 6 OR MORE 03/01/2020 13945-MOYCWSX NAIL, 6 OR MORE 06/03/2020 14330-DYWSCHS NAIL, 6 OR MORE 09/02/2020 23823-OSPWVCL NAIL, 6 OR MORE 12/02/2020 49986-GVVFUPC NAIL, 6 OR MORE 03/07/2021 43283-OTULNKJ NAIL, 6 OR MORE 06/22/2021 22333-DULJQAO NAIL, 6 OR MORE 09/19/2021 75322-GVAQPYM NAIL, 6 OR MORE 12/22/2021 85897-LHRMMZI NAIL, 6 OR MORE 03/27/2022 54081-DAQJUVB NAIL, 6 OR MORE 06/29/2022 33477-INAKJIN NAIL, 6 OR MORE 10/02/2022 44898-BJUBLJQ NAIL, 6 OR MORE 12/11/2022 62197-NEPKZMD NAIL, 6 OR MORE 03/26/2023 59795-VYBTECD NAIL, 6 OR MORE 06/11/2023 81098-ALBPVWK NAIL, 6 OR MORE 08/23/2023 77848-JSZJISF NAIL, 6 OR MORE 11/21/2023 65613-LAIUIGE NAIL, 6 OR MORE 02/04/2024 59106-TOIQTXD NAIL, 6 OR MORE 04/29/2024 30640-Hqdvbazg Plate 11/21/2023 21755-Lfglubdm Plate 10/02/2022 29308-Thtlqonf Plate 08/23/2023 21403-Mepumaku Plate 06/22/2021 83377-Tfthbpyi Plate 09/19/2021 19476-Xxffpwik Plate 09/02/2020 69721-Ehhzrfvm Plate 12/02/2020 33637-Bommfgng Plate 12/01/2019 57464-Uvdlyulq Plate 03/01/2020 21031-Snxuzkgl Plate 02/20/2019 12532-Eawykggg Plate 08/25/2019 40448-Mumyvnmp Plate 08/22/2018 59370-Mugskkrx Plate 11/18/2018 76288-Xwaolems Plate 05/23/2018 44208-Tpzrkmnj Plate 08/20/2017 57471-Bsggpzgp Plate 05/21/2017 57121-Ugxsoqam Plate 02/12/2017 01755-Ewkvfpnj Plate 11/13/2016 96522-Ehcstgty Plate 05/08/2016 66492-Jogylsuh Plate 12/02/2015 87682-Bgcpenbb Plate 06/23/2015 41390-Yibzpnuj Plate 03/22/2015 91237-Yclmhonc Plate 12/16/2014 53546-Hjbkcpmt Plate 06/24/2014 45308-Wjtynzry Plate 10/12/2011 93888-Dpgtvfvh Plate 09/02/2014 01690-Duhagjii Plate 12/01/2013 30595-Jabsortm Plate 03/09/2014 48700-Ctoyvkrx Plate 08/18/2013 01027-Zbhbkkdg Plate 02/03/2013 18397-Bfgluomg Plate 05/12/2013 65239-Uzvibzed Plate 01/03/2012 99965-Krzolknt Plate 05/03/2011 66586-Edusqqfr Plate 01/30/2011 47701-Rxqmfcvk Plate 07/24/2012 47639-Wqecakfn Plate 10/21/2012 55494-Rzifwtxe Plate Each Additional 78629-Yuslyydv Plate Each Additional 08/2011 01853-Udxklepk Plate Each Additional 08518-Jiqqaunn Plate Each Additional 01/2014 67493-Lmhtmukm Plate Each Additional 07/2013 94438-Vplnfgem Plate Each Additional 38933-Qalliwvd Plate Each Additional 00370-Ijkvxswq Plate Each Additional 09/2014 71057-Qweufopg Plate Each Additional 76917-Cpcnpbui Plate Each Additional 09/2020 56263- Debride <25 sq cm 09/02/2020 18516- Debride <25 sq cm 12/02/2020 57006- Debride <25 sq cm 06/03/2020 42449- Debride <25 sq cm 03/07/2021 81079- Debride <25 sq cm 09/19/2021 79117- Debride <25 sq cm 06/22/2021 80751- Debride <25 sq cm 08/22/2018 62056- Debride <25 sq cm 05/26/2019 61421- Debride <25 sq cm 02/20/2019 24363- Debride <25 sq cm 08/25/2019 73737- Debride <25 sq cm 03/01/2020 37463- Debride <25 sq cm 12/01/2019 37570- Debride <25 sq cm 12/22/2021 38076- Debride <25 sq cm 06/29/2022 45771- Debride <25 sq cm 03/27/2022 86878- Debride <25 sq cm 06/11/2023 12198- Debride <25 sq cm 12/25/2022 79363- Debride <25 sq cm 03/26/2023 82769- Debride <25 sq cm 10/02/2022 83149- Debride <25 sq cm 08/23/2023 12793- Debride <25 sq cm 05/21/2017 92363- Debride <25 sq cm 02/12/2017 57088- Debride <25 sq cm 08/20/2017 72138- Debride <25 sq cm 11/22/2017 26940- Debride <25 sq cm 05/23/2018 93479- Debride <25 sq cm 02/21/2018 38096- Debride <25 sq cm 02/03/2016 47018- Debride <25 sq cm 05/08/2016 15045- Debride <25 sq cm 08/10/2016 72546- Debride <25 sq cm 11/13/2016 86325- Debride <25 sq cm 12/01/2013 21276- Debride <25 sq cm 03/09/2014 71931- Debride <25 sq cm 08/18/2013 33346- Debride <25 sq cm 05/12/2013 94146- Debride <25 sq cm 02/03/2013 58355- Debride <25 sq cm 04/03/2012 79758- Debride <25 sq cm 07/24/2012 51703- Debride <25 sq cm 10/21/2012 81655- Debride <25 sq cm 05/03/2011 98422- Debride <25 sq cm 01/03/2012 44126- Debride <25 sq cm 07/12/2011 70308- Debride <25 sq cm 10/12/2011 64324 I&D ABSCESS- SIMPLE,SINGLE 012 09894 I&D ABSCESS- SIMPLE,SINGLE 012 57778 I&D ABSCESS- SIMPLE,SINGLE 024 95676 I&D ABSCESS- SIMPLE,SINGLE 023 39369-YIYZ SKIN LESIONS, OVER 4 04/29/20 24 36436-OWIJ SKIN LESIONS, OVER 4 11/21/19 24 14444-LAXF SKIN LESIONS, OVER 4 02/04/20 Next Appt Details Provider Name:Yelena Hargrove , 08/04/2024 09:00:00 AM, [address] [place] [address], [phone], Provider Name:Yelena Hargrove , 11/06/2024 09:00:00 AM, [address] [place] [address], [phone], Insurance Providers Payer Name Payer Address Payer Phone Subscriber Number Group Number Insured Name Patient Relationship to Insured Coverage Start Date Coverage End Date Medicare National [employer] [address] [place] [address] [id number] Kamari Schwab Self - patient is the insured [employer] [address] [place] [address] [id number] Kamari Schwab Self - patient is the insured Medical (General) History Medical History History ICD Code stroke joint implants/screws heart disease Arthritis TIA Stroke Surgical History Surgery Date(Month/Year) heart surgery unspecified 2001 left hip replacement 2001 right knee replacement 2009 shoulder surgery 1949 Hospitalization History Reason Date(Month/Year) Tiffanie- pt fell, broke back [facility] [place]- F/u apt pt on the floor - didn't fa ll 09/17/2022 [facility] [place]: amitted for TIA/Stroke-3 day stay 1
--- OUTSIDE RECORDS SUMMARY | 2024-05-13 11:47 | XMS_ITS ---
Author Organization [facility] Address [address] [place] [address] Care Team Providers Care Roving Winder Name Role Phone Duncan Hodgson MD Primary Care Provider Unavaila Yelena Turner [phone] Encounters Encounter Location Date Provider Diagnosis [address] [address] 02/04/2024 Yelena Hargrove Plan Of Treatment Next Appt Details Provider Name:Yelena Karina Delvin , 08/04/2024 09:00:00 AM, [address] [place] [address], [phone], Provider Name:Yelena A Delvin , 11/06/2024 09:00:00 AM, [address] [place] [address], [phone], Progress Notes * Kamari SCHWAB CDOB: [birth year] (88 yo M)Acc No.[id number]:02/04/2024 Progress Note Patient:?Kamari SCHWAB Domingo Provider:?Yelena Hargrove DPM :1935???Age:88 Y???Sex:Male Geovany e:02/04/2024 Address:[address] [place], [place] [id number] Pcp:Duncan Hodgson MD Subjective: * Chief Complaints: * ??? * Medical History:? Objective: * Vitals:? Assessment: Plan: * Treatment: * Images: * The named appointment provid er may or may not be the originator of this progress note, and it is not deemed complete until electronically signed by the appointment provider. Sign off status: Pending * Provider:Emma Hargrove DPM Date:?2023 Generated for Louisa good/Bandar/Antolin on:?05/13/2024 11:47 AM EST
--- OUTSIDE RECORDS SUMMARY | 2024-05-13 11:47 | XMS_ITS ---
Author Organization [facility] Address [address] [place] [address] Care Team Providers Care Pipe Tester Name Role Phone Duncan Hodgson MD Primary Care Provider Unavaila ble Black, Yelena Unavailable [phone] Allergies No Known Allergies REASON FOR VISIT At Risk Footcare, Painful Nail(s) aggravated by shoes and causing difficulty standing/walking Medications Medication SIG (Take, Route, Frequency, Duration) Notes Start Date End Date Status vitamin D Active Multi Vitamin Daily Active Darien 3-6-9 Complex Not-Taking Aspirin 81 MG 1 tablet Orally Once a day for 30 day(s) Not-Taking Cephalexin 500 MG 1 capsule Orally twi ce a day for 10 days 12/11/2022 Not-Taking Metoprolol Succinate twice a day Active Flomax Active Social History Tobacco Use: Social History Observation [...] Problem Status W/U Status Risk Notes Problem [id number] Essential hypertension (I10) Active confirmed Vital Signs Height 5 ft 10 in in 04/29/2024 Weight 162 lbs 04/29/2024 BMI 23.24 kg/m2 04/29/2024 Blood pressure systolic 170 mm Hg 04/29/20 24 Blood pressure diastolic 60 mm Hg 024 Procedures Procedure Date Ordered Date Performed Result Body Sit e 20016-TXAKBMU NAIL, 6 OR MORE 04/29/2024 N/A 40551-AGEO SKIN LESIONS, OVER 4 04/29/2024 N/A Encounters Encounter Location Date Provider Diagnosis [facility] [address] [address] 04/29/2024 Yelena Hargrove Tinea unguium B35.1 ; Atherosclerosis of [place] artery of both lower extremities, with unspecified presence of clinical manifestation I70.203 ; Pain in right toe(s) M79.674 and Pain in left toe(s) M79.675 Assessments Encounter Date Diagnosis (ICD Code) Assessment Notes Treatment Notes Treatment Clinical Notes Section Notes 04/29/2024 Tinea unguium (ICD-10 - B35.1) 04/29/2024 Atherosclerosis of [place] artery of both lower extremities, with unspecified presence of clinical manifestation (ICD-10 - I70.203) Q7(A), Q8(2B), Q9(1B,2C) 04/29/2024 Pain in right toe(s) (ICD-10 - M79.674) 04/29/2024 Pain in left toe(s) (ICD-10 - M79.675) 04/29/2024 Other Plan Of Treatment Pending Test Test Name Order Date 56779-DEFONZZ NAIL, 6 OR MORE 04/29/2024 38101-ZHOI SKIN LESIONS, OVER 4 04/29/20 24 Next Appt Details Follow Up: prn, Reason: Provider Name:Yelena Hargrove , 08/04/2024 09:00:00 AM, [address] [place] [address], [phone], Provider Name:Yelena Hargrove , 11/06/2024 09:00:00 AM, [address] [place] [address], [phone], Procedure Notes * Category Sub-Category Detail Notes Debride Nail 6-10 Nail debridement Due to the cl inical pathology outlined in the exam findings, performance of this nail treatment is medically necessary as its management by an unskilled/untrained nonprofessional would put this patients foot and overall health at risk. Therefore, debridement to affected nail(s), as described in exam ( TA, T1, T2, T3, T4, T5, T6, T7, T8, T9, ), was performed exclusively by the physician of record to reduce/remove overall nail length, girth, thickness, subungual debris, and necrotic tissue, by manual and/or electrical means through the use of a nail nipper and/or dremel-type automatic corn grinder operator, to a more viable healthy nail plate or bed tissue 6-10 nails in total. Silver nitrate was used for any petechial bleeding as necessary. Definitive antifungal treatment options, both pharmaceutical and surgical, have been reviewed and discussed with the patient. The patient solely prefers the use of intermittent/as needed professional debridement services for their nail condition and understands the need for additional periodic treatments to maintain effectiveness in symptomatic relief - 97643 Keratoma Treatment Parring or Cutting o f Benign Hyperkeratotic Lesion(s) ... , Q8 ,, (-57) More than 4 Lesions - Due to the at risk nature of the patients medical condition as documented in the exam findings, performance of this keratoderma treatment is medically necessary as its management by an unskilled/untrained nonprofessional would put this patients foot and overall health at risk. Therefore, the benign hyperkeratotic lesions, ( 6 ) in total, locations as stated and described in the exam ( _, Midfoot B/L, , Heel(s) , B/L , SUB MTH (s) , 1 ,), were pared, and/or cut utilizing a sterile 15 blade, tissue nippers, and/or power dremel instrumentation by the physician of record - 31362 Progress Notes * Kamari SCHWAB CDOB: [birth year] (88 yo M)Acc No.[id number]:04/29/2024 Progress Note Patient:?Kamari SCHWAB Provider:?Yelena Hargrove DPM :1935???Age:88 Y???Sex:Male Geovany e:04/29/2024 Address:[address] [place] [address] Pcp:Duncan Hodgson MD Subjective: * Chief Complaints: * ???At Risk FootcarePainful N ail(s) aggravated by shoes and causing difficulty standing/walking * HPI: ???Painful Nails:?Pt States Last PCP Visit:?Date:?12/13/2023 ???At Risk footcare:?Pt States Last PCP Visit:?Date?12/13/2023 * ROS:?General/Constitutional:?Nausea?denies.?Vomiting?denies.?Hunger Thirst?denies.?Loss appetite?denies.?Chills?denies.?Fatigue?denies.?Fever?denies.?Night Sweats?denies.?Unexplained weight loss?denies.?Ophthalmologic:?Blurred vision?denies.?Red eye?denies.?HEENTM:?Dentures?denies.?Dizziness?denies.?Glasses/contacts?denies.?Retinopathy?de nies.?Blurred/double vision?denies.?TMJ?denies.?Discharge/drainage?denies.?Implants?denies.?Hard of hearing denies.?Difficulty chewing/swallowing/speaking?denies.?Nose bleeds?denies.?Sore mouth?denies.?Swollen glands?denies.?Respiratory:?On Oxygen?denies.?Pneumonia/pleurisy?denies.?Bronchitis?denies.?Emphysema?denies.?C oughing?denies.?Cough blood?denies.?Shortness of breath?denies.?Wheezing?denies.?Cardiovascular:?Pacemaker?denies.?MVP?denies.?WPW?denies.?CHF?denies.?Heart attack?denies.?Septal defect?denies.?Rapid beat?denies.?Chest pain ?denies.?Atrial Fib.?denies.?Murmur/Palpitations?denies.?Gastrointestinal:?Hemorrhoids?denies.?Stomach/Abdominal pain?denies.?Dark blood stool?denies.?Irritable bowel ?denies.?Constipation?denies.?Diarrhea?denies.?Vomiting?denies.?Hematology:?Swelling?denies.?Bruising?denies.?Bleeding problem?denies.?Genitourinary:?Blood urine?denies.?Frequent/Painfu/urination/bladder control?denies.?Kidney stones?denies.?Infection (UTI)?denies.?Nephropathy?denies.?Musculoskeletal:?Hammertoes?denies.?Bunions?denies.?Scoliosis/kyphosis?denies.?Muscle cramps / walking?denies.?Generalized aches and pains?denies.?Weakness?denies.?Integ.:?Womack?denies.?Scars?denies.?Corns/calluses?, admits.?Ingrown nails?, admits.?Painful nails?admits.?Rashes?denies.?Neurologic:?Difficulty sleeping?denies.?Bipolar?denies.?Brain disorder?denies.?Balance trouble?admits.?Confusion?denies.?Fainting/blackouts?denies.?Headache?denies.?Tr emors?denies.? * Medical History:? * Surgical History:?heart surg yudith unspecified 2002left hip replacement 2002right knee replacement 2009shoulder surgery 89 * Hospitalization/Major Diagno stic Procedure:?[facility]: amitted for TIA/Stroke-3 day stay 02/03/2018[facility]- F/u apt pt on the floor - didn't fall 09/17/2022[facility]- pt fell, broke back [facility] 08/2023 * Family History:?Mother: dece ased, heart condition, diagnosed with Unspecified heart disease.?Father: .?1 son(s) , 1 daughter(s) . .? * Social History:?Tobacco Use:?Tobacco Use/Smoking?Are you a:?nonsmoker ?Additional Findings: Tobacco Non-User?Current non-smoker ?Tobacco use other than smoking?Are you an other tobacco user??No ???Drugs/Alcohol:?Drugs?Have you used drugs other than those for medical reasons in the past 12 months??No ???Miscellaneous:?Children: yes. ?Marital status: . ?Occupation: Retired. ???Drug/Alcohol:?AUDIT-C (Standard)?Did you have a drink containing alcohol in the past year??No ?Points?0 ?Interpretation?Negative * Medications:?TakingFlomax Me toprolol Succinate twice a day Multi Vitamin Daily vitamin D Taking Flomax Taking Metoprolol Succinate twice a day Taking Multi Vitamin Daily Taking vitamin D Not-Taking/PRNCephalexin 500 MG Capsule 1 capsule Orally twice a day Aspirin 81 MG Tablet Chewable 1 tablet Orally Once a day Darien 3-6-9 Complex Medication List reviewed and reconciled with the patientNot-Taking/PRN Cephalexin 500 MG Capsule 1 capsule Orally twice a day Not-Taking/PRN Aspirin 81 MG Tablet Chewable 1 tablet Orally Once a day Not-Taking/PRN Darien 3-6-9 Complex Medication List reviewed and reconciled with the patient * Allergies:?N.K.D.A.yes[Aller gies Verified] Objective: * Vitals:?Ht: 5 ft 10 in, Wt: 162, BMI: 23.24, Shoe size: 11, BP: 170/60 mm Hg, Wt-k.48 kg. * Examination: ???General Examination: ?GENERAL APPEARANCE:?Reveals a pleasant, alert, well nourished, well- developed, well hydrated individual, who demonstrates proper attention to hygiene/body habitus, and is in no acute distress, Pt serves as own historian for office visit today.?Dermatologic: ?SKIN FINDINGS:?Skin exam reveals Keratotic lesion(s) located at , Midfoot B/L, , Heel(s) , B/L , SUB MTH (s) , 1 ,?.?Nails: ?NAILS are:?elongated,overgrown,dystrophic,greater than 3mm thick,discolored and friable with crumbly malodorous subungual debris, with pain on palpation, ,, TA, T1, T2, T3, T4, T5, T6, T7, T8, T9.?Neurological: ?SENSORY:?Neurological exam reveals intact sensorium, pain sensation normal, vibration sensation intact, pinprick sensation is normal in the lower extremities, 5.07 monofilament test performed at plantar aspects of 5 varied sites per foot shows sensation, normal, B/L, Pt denies, anesthesia, burning, paresthesia, tingling, B/L.?Vascular: ?DP PULSES (B):? 0/4, B/L.?PT PULSES (B):?, 1/4, B/L.?CAPILLARY FILL TIME:? delayed, all digits, B/L.?TROPHIC CONDITION-TEXTURE/ELASTICITY/TURGOR/HAIR GROWTH (B):? decreased, B/L.?TEMPERTURE GRADIENT (C):? decreased, cool to cool, proximal to distal, B/L.?PIGMENTATION:?hemosiderin deposition B/L.?EDEMA (C):?1/4 , non-pitting , B/L.?CLAUDICATION (C):?denies, B/L.?REST PAIN:?denies, B/L.? Assessment: * Assessment: 1.?Tinea unguium - B35.1???2 .?Atherosclerosis of [place] artery of both lower extremities, with unspecified presence of clinical manifestation - I70.203 (Primary)???Notes :Q7(A), Q8(2B), Q9(1B,2C)???3.?Pain in right toe(s) - M79.674???4.?Pain in left toe(s) - M79.675??? Plan: * Treatment: 2.?Tinea unguium?Procedure: 18118-IYXQPVQ NAIL, 6 OR MORE * Procedures:?Debride Nail 6-10:?Nail debridement?Due to the clinical pathology outlined in the exam findings, performance of this nail treatment is medically necessary as its management by an unskilled/untrained nonprofessional would put this patients foot and overall health at risk. Therefore, debridement to affected nail(s), as described in exam ( TA, T1, T2, T3, T4, T5, T6, T7, T8, T9, ), was performed exclusively by the physician of record to reduce/remove overall nail length, girth, thickness, subungual debris, and necrotic tissue, by manual and/or electrical means through the use of a nail nipper and/or dremel-type automatic corn grinder operator, to a more viable healthy nail plate or bed tissue 6- 10 nails in total. Silver nitrate was used for any petechial bleeding as necessary. Definitive antifungal treatment options, both pharmaceutical and surgical, have been reviewed and discussed with the patient. The patient solely prefers the use of intermittent/as needed professional debridement services for their nail condition and understands the need for additional periodic treatments to maintain effectiveness in symptomatic relief - 25745.?Keratoma Treatment:?Parring or Cutting of Benign Hyperkeratotic Lesion(s)?... , Q8 ,, (-57) More than 4 Lesions - Due to the at risk nature of the patients medical condition as documented in the exam findings, performance of this keratoderma treatment is medically necessary as its management by an unskilled/untrained nonprofessional would put this patients foot and overall health at risk. Therefore, the benign hyperkeratotic lesions, ( 6 ) in total, locations as stated and described in the exam ( _, Midfoot B/L, , Heel(s) , B/L , SUB MTH (s) , 1 ,), were pared, and/or cut utilizing a sterile 15 blade, tissue nippers, and/or power dremel instrumentation by the physician of record - 36459.? * Procedure Codes:?97685 DEBRI DE NAIL, 6 OR MORE, Modifiers: XS 19045 TRIM SKIN LESIONS, OVER 4, Modifiers: Q8 * Follow Up:?prn * Images: * Sign off status: Completed true * Provider:?BURAK LeónM Date:?2023 Generated for Louisa good/Bandar/Antolin on:?05/13/2024 11:47 AM EST History and Physical Notes * HPI (History of Present Illness) Category Sub-Category Detail Notes Category Not es Painful Nails Pt States Last PCP Visit: Date:: 12/13/2023 At Risk footcare Pt States Last PCP Visit: Date: 4 Examination Category Sub-Category Detail Notes Category Not es Neurological SENSORY: Neurological exa m reveals intact sensorium, pain sensation normal, vibration sensation intact, pinprick sensation is normal in the lower extremities, 5.07 monofilament test performed at plantar aspects of 5 varied sites per foot shows sensation, normal, B/L, Pt denies, anesthesia, burning, paresthesia, tingling, B/L Dermatologic SKIN FINDINGS: Skin exam reveal s Keratotic lesion(s) located at , Midfoot B/L, , Heel(s) , B/L , SUB MTH (s) , 1 , ULCER: General Examination GENERAL APPEARANCE: Reveals a pleasant, alert, well nourished, well-developed, well hydrated individual, who demonstrates proper attention to hygiene/body habitus, and is in no acute distress, Pt serves as own historian for office visit today Vascular DP PULSES (B): 0/4, B/L PT PULSES (B): , 1/4, B/L CAPILLARY FILL TIME: delayed, all digits , B/L TEMPERTURE GRADIENT (C): decreased, cool to cool, proximal to distal, B/L TROPHIC CONDITION-TEXTURE/ELASTICITY/TURGOR/HAIR GROWTH (B): decreased, B/L EDEMA (C): 1/4 , non-pitting , B/L CLAUDICATION (C): denies, B/L REST PAIN: denies, B/L PIGMENTATION: hemosiderin depositi on B/L Nails NAILS are: elongated,overgr own,dystrophic,greater than 3mm thick,discolored and friable with crumbly malodorous subungual debris, with pain on palpation, ,, TA, T1, T2, T3, T4, T5, T6, T7, T8, T9
--- OUTSIDE RECORDS SUMMARY | 2024-05-13 11:47 | XMS_ITS ---
Author Organization [facility] Address [address] [place] [address] Care Team Providers Care Gold Assayer Name Role Phone Duncan Hodgson MD Primary Care Provider Unavaila Yelena Turner Unavailable [phone] Salter Encounters Encounter Location Date Provider Diagnosis [address] [address] 05/05/2024 Yelena Hargrove Plan Of Treatment Next Appt Details Provider Name:Yelena Collins Delvin , 08/04/2024 09:00:00 AM, [address] [place] [address], [phone], Provider Name:Yelena Collins Delvin , 11/06/2024 09:00:00 AM, [address] [place] [address], [phone], Progress Notes * Kamari SCHWAB CDOB: [birth year] (88 yo M)Acc No.[id number]:05/05/2024 Progress Note Patient:?Kamari SCHWAB Domingo Provider:?Yelena Hargrove DPM :1935???Age:88 Y???Sex:Male Geovany e:05/05/2024 Address:[address] [place], [place] [id number] Pcp:Duncan Hodgson MD Subjective: * Chief Complaints: * ???1. Dr Salter. * Medical History:? Objective: * Vitals:? Assessment: Plan: * Treatment: * Images: * The named appointment provid er may or may not be the originator of this progress note, and it is not deemed complete until electronically signed by the appointment provider. Sign off status: Pending * Provider:Emma Hargrove DPM Date:?2024 Generated for Louisa good/Bandar/Antolin on:?05/13/2024 11:46 AM EST
[2024-05-13 13:09] LABS: MANUAL DIFF FLAG NO
[2024-05-13 13:20] LABS: Basophils Percent Auto 0.4 % (0-2); Eosinophils Absolute Auto 0.2 X10*3/uL (0.0-0.4); Eosinophils Percent Auto 2.6 % (0-4); Hematocrit 40.6 % (42.0-52.0); Hemoglobin 13.2 g/dl (14.0-18.0); Imm Gran Abs Auto 0.03 X10*3/uL (0.00-0.03); Imm Gran Pct Auto 0.4 % (0.0-0.4); Lymphocytes Absolute Auto 0.8 X10*3/uL (1.2-4.9); Mean Corpuscular HGB Conc 32.5 g/dl (31.0-36.0); Mean Corpuscular Hemoglobin 32.6 pg (27.0-33.0); Mean Corpuscular Volume 100.2 fL (80.0-98.0); Mean Platelet Volume 10.8 fL (9.4-12.4); Monocytes Absolute Auto 0.6 X10*3/uL (0.1-1.2); Monocytes Percent Auto 9.3 % (2-11); Neutrophils Absolute Auto 5.2 x10*3/uL (2.0-8.3); Neutrophils Percent Auto 75.3 % (45-73); Platelet Count 265 X10*3/uL (160-400); Red Blood Count 4.05 X10*6/uL (4.60-5.80); Red Cell Distribution Width 12.7 % (11.0-16.0); White Blood Count 6.9 X10*3/uL (4.8-10.8)
[2024-05-13 13:42] LABS: Alanine Aminotransferase 22 U/L (0-40); Albumin Level 4.1 g/dL (3.5-5.0); Alkaline Phosphatase 123 U/L (39-117); Anion Gap 10 (12-20); Aspartate Amino Transferase 27 U/L (5-37); Blood Urea Nitrogen 17 mg/dL (9-16); Calcium 9.4 mg/dL (8.4-10.2); Carbon Dioxide 29 mmol/L (22-29); Chloride 105 mmol/L (96-108); Estimated Glomerular Filt Rate > 60; Glucose Random 92 mg/dL (60-115); Potassium 4.6 mmol/L (3.3-5.1); Sodium 139 mmol/L (135-145); Total Protein 6.8 g/dL (6.5-8.0)
[2024-05-13 14:03] LABS: Vitamin D 25-OH Total 45.3 ng/mL (>30)
== END 2024-05-13 10:16 | disposition home or self-care (01) ==
LOC: HO.HMGCLDS 10:15
PROVIDERS: PCP Internal Medicine; Visit Provider Internal Medicine
DX: Z86.73 Personal history of transient ischemic attack (TIA), and cerebral infarction without residual deficits (principal); I10 Essential (primary) hypertension
CPT/HCPCS: 36415; 80053; 82306; 85025

== ENCOUNTER 2024-08-27 09:51 | Outpatient (AMB) | payer MEDICARE, SELFPAY ==
--- NOTE | 2024-08-27 09:57 | MHC.PC.OV ---
Vital Signs 08/27/24 10:28 Height 5 ft 8 in Weight 164 lb BMI 24.9 BP 144/80 H Blood Pressure Location Rt brachial Position Sitting Pulse 82 Pulse Source Pulse Oximeter Temp 97.9 F Temp Source Axillary Pulse Oximetry (%) 96 Oxygen Delivery Method Room Air Intake Visit Reasons: Routine Field Kiln Burner Required: No Accompanied by: Spouse Allergies No Known Allergies [No Known Allergies*] Allergy (Verified 08/27/24 09:57) Medication List - Last Reconciled 08/27/24 by Surya Pro MD cholecalciferol (vitamin D3) 25 mcg PO DAILY fluticasone propion-salmeterol 100-50 mcg/dose (Wixela Inhub) 1 ea inhalation BID 0 days metoprolol tartrate 50 mg PO BID multivitamin 1 tab PO DAILY tamsulosin 0.4 mg PO BEDTIME Tobacco use date assessed: 08/27/24 Fall risk assessment: 1 Fall in past year Last assessed Fall Risk: 08/27/24 Dental Screening Dental Screen Date: 08/27/24 Did you have a dental visit in the last 12 months?: No Did you have a dental problem in the last 6 months where you did not have access to dental care?: No [facility] Medical History (Updated 08/27/24 @ 13:27 by Surya Pro MD) Benign enlargement of prostate Essential hypertension Family History (Updated 08/27/24 @ 10:35 by Kelsi Bay MA) Mother Breast cancer Father Lopez Swanson attack Social History Housing: House Patient Tobacco Use Status: Former Tobacco user e-Cigarette/Vaping Use: Former Use Advance Directives Date on File: 02/05/20 service: No Current occupational status: retired Cognitive needs: No Hearing needs: No Vision needs: Yes (reading glasses) Questionnaire PHQ-9 Over the last 2 weeks, how often have you been bothered by any of the following problems? 1. Little interest or pleasure in doing things: not at all 2. Feeling down, depressed, or hopeless: not at all 3. Trouble falling or staying asleep, or sleeping too much: not at all 4. Feeling tired or having little energy: not at all 5. Poor appetite or overeating: not at all 6. Feeling bad about yourself - or that you are a failure or have let yourself or your family down: not at all 7. Trouble concentrating on things, such as reading the newspaper or watching television: not at all 8. Moving or speaking so slowly that other people could have noticed. Or the opposite - being so fidgety or restless that you have been moving around a lot more than usual: not at all 9. Thoughts that you would be better off or of hurting yourself in some way: not at all Total score: 0 Source: Developed by Drs. Carlos Limon, Melissa Gage, Tin Cote and colleagues, with an educational nichole from [employer]. Thrive Questionnaire Date Thrive assessed: 08/27/24 I am a: Patient Within the past 12 months, did the food you bought not last and you didn't have the money to get more?: Never true Within the past 12 months, did you worry whether your food would run out before you got money to buy more?: Never true Do you have trouble paying for medicines?: No Do you have trouble getting transportation to medical appointments?: No Do you have trouble paying your heating and electricity bill?: No Do you have trouble taking care of your child, family member or friend?: No Do you have trouble with day-to-day activities such as bathing, preparing meals, shopping, managing finances, etc.?: No Are you currently unemployed and looking for a job?: No Are you interested in more education?: No THRIVE Score: 0 AUDIT C Alcohol Use Questionnaire (AUDIT-C) 1. How often do you have a drink containing alcohol?: Never 3. How often do you have six or more drinks on one occasion?: Never Total Score: 0 SOUMYA-7 AMB Questionnaire SOUMYA-7 Date SOUMYA - 7 assessed: 08/27/24 Feeling nervous, anxious, or on edge: 0 = Not at all Not being able to stop or control worryin = Not at all Worrying too much about different things: 0 = Not at all Trouble relaxin = Not at all Being so restless that it is hard to sit still: 0 = Not at all Becoming easily annoyed or irritable: 0 = Not at all Feeling afraid as if something awful might happen: 0 = Not at all Total SOUMYA-7 score (0-4 normal; 5-9 mild; 10-14 moderate; 15-21 severe): 0 Source: Developed by Drs. Carlos Limon, Melissa Gage, Tin Cote and colleagues, with an educational nichole from [employer]. Physical exam (Primary Care) Vital Signs: Last Vital Signs Temp 97.9 F 08/27/24 10:28 Pulse 82 08/27/24 10:28 BP 144/80 H 08/27/24 10:28 Pulse Ox 96 08/27/24 10:28 Oxygen Delivery Method Room Air 08/27/24 10:28 BMI result Body Mass Index 24.9 Tobacco/Smoking Status: Tobacco use Status Tobacco use date assessed 08/27/24 08/27/24 09:59 Patient Tobacco Use Status Former Tobacco user 08/27/24 10:36 e-Cigarette/Vaping Use Former Use 08/27/24 10:36 PHQ-9: PHQ-9 Score PHQ-9: Total score 0 08/27/24 10:36 Thrive Assessment: Date of Thrive Assessment Date Thrive assessed 08/27/24 08/27/24 09:59 Coding Level of Care Code New Pt Level 4 (38073) Complex EM visit Add On G2211 Diagnoses Essential hypertension I10 Benign enlargement of prostate N40.0 Assessment & Plan Assessment & Plan (1) Essential hypertension: Code(s): I10 - Essential (primary) hypertension Category: Medical Plan: BP is in range. Continue meds at same dosage. (2) Benign enlargement of prostate: Code(s): N40.0 - Benign prostatic hyperplasia without lower urinary tract symptoms Category: Medical Plan: PSA to be checked Plan History of Present Illness The patient is an 89-year-old male presenting for follow-up and management of chronic conditions including Chronic Obstructive Pulmonary Disease (COPD) and essential hypertension. His medical history is notable for COPD, initially labeled as asthma, with progressive decline in respiratory function. The patient has a history of stroke and hip replacement, impacting his ambulation; he requires a walker for mobility and cannot manage stairs independently. His cardiovascular history reveals a myocardial infarction with subsequent detection and repair of an atrial septal defect. A history of falling resulted in a vertebral compression fracture requiring extended rehabilitation. The patient has significant osteoarthritis contributing to the reduced range of motion and is managed on diuretics such as Lasix for significant leg edema associated with varicose veins. In addition, he experiences frequent urination, majorly nocturnal, but maintains continence with occasional aid. Overall, the patient manages numerous chronic conditions, requiring careful monitoring and ongoing activity management to minimize impact on daily life and maintain the quality of life. Social History - Lives in a cape-style house with the bedroom and bathroom on the first floor. - Primary caregiver to the patient, manages all household duties, including groceries and cooking. - Takes care of a grandson, with outside help when needed. Review of Systems - Cardiovascular: Denies chest pain. - Respiratory: Reports history of COPD. - Genitourinary: Reports frequent urination, primarily nocturnal. - Musculoskeletal: Reports decreased mobility, uses a walker, history of a hip replacement. - Neurological: Reports history of stroke. Physical Exam General: Cooperative and healthy appearing Nutritional Appearance: Well nourished Orientation/consciousness: Patient oriented x3 Limitations: No limitations Head: Normal to inspection General: Appearance normal, both eyes and all related structures Neck: Normal visual inspection Chest: Normal palpation of entire chest wall Respiratory: COPD ormal respiratory effort Neurology: Patient oriented x3, history of stroke Results Plan - Conduct routine blood work in six months. - Manage COPD with proper medication refill protocols through pharmacy. - Maintain rehabilitation exercises to aid mobility. - Address frequent urination and consider interventions if nocturnal symptoms exacerbate. Patient was informed and verbally consented to the use of an ambient scribe for clinic note documentation during this visit. Discussion Notes During our discussion, I reviewed the management plan for the patient's chronic conditions, particularly focusing on COPD and hypertension. We acknowledged the importance of consistent medication management via pharmacy communication for prescription refills. I highlighted the necessity of routine blood work scheduled for every six months to monitor ongoing health indicators. We talked about the patient's mobility constraints post-stroke and hip replacement, supporting continuous rehabilitation efforts. Additionally, I addressed the patient's urinary frequency, noting current management strategies and the potential need for future intervention if nocturnal symptoms heighten. The patient and I also discussed his social support system, particularly his role as a primary caregiver, and the assistance required for household tasks and caregiving responsibilities. Patient Instructions - Schedule and complete blood work in six months for routine monitoring. - Ensure all medication refills are requested through the pharmacy at least 3 to 4 days in advance. - Continue mobility exercises as per rehabilitation guidance. - Monitor urinary frequency; contact care provider if symptoms worsen. - Reach out for assistance as needed for household and caregiving responsibilities.
[2024-08-27 10:28] VITALS: BP 144/80; PULSE 82; TEMP 36.6; O2SAT 96; BMI 24.9
--- OUTSIDE RECORDS SUMMARY | 2024-08-27 10:45 | XMS_ITS ---
Author Organization [facility] Address [address] [place] [id number] Care Team Providers Care Highway Worker Name Role Phone Surya Pro Primary Care Provider [phone] Yelena Hargrove [phone] Salter Encounters Encounter Location Date Provider Diagnosis [address] [phone] 05/05/2024 Yelena Hargrove Plan Of Treatment Next Appt Details Provider Name:Yelena Collins Delvin , 11/06/2024 09:00:00 AM, [address] [place] [address], [phone], Provider Name:Yelena Collins Delvin , 02/02/2025 09:00:00 AM, [address] [place] [address], [phone], Progress Notes * Kamari SCHWAB CDOB: [birth year] (89 yo M)Acc No.[id number]:05/05/2024 Progress Note Patient:?Kamari SCHWAB Provider:Emma Hargrove DPM :1935???Age:88 Y???Sex:Male Geovany e:05/05/2024 Address:[address] [place], [place] [id number] Pcp:Surya Pro Subjective: * Chief Complaints: * ???1. Dr Salter. * Medical History:? Objective: * Vitals:? Assessment: Plan: * Treatment: * Images: * The named appointment provid er may or may not be the originator of this progress note, and it is not deemed complete until electronically signed by the appointment provider. Sign off status: Pending * Provider:?Yelena Hargrove DPM Date:?2024 Generated for Louisa good/Bandar/Jcitting on:?08/27/2024 10:44 AM EDT
--- OUTSIDE RECORDS SUMMARY | 2024-08-27 10:45 | XMS_ITS ---
Author Organization [facility] Address [address] [place] [address] Care Team Providers Care Millinery Copyist Name Role Phone Surya Pro Primary Care Provider [phone] Black, Yelena Unavailable [phone] Allergies No Known Allergies REASON FOR VISIT At Risk Footcare, Painful Nail(s) aggravated by shoes and causing difficulty standing/walking, Ingrown Nail Medications Medication SIG (Take, Route, Frequency, Duration) Notes Start Date End Date Status Wixela Inhub Active [place] 3-6-9 Complex Not-Taking Aspirin 81 MG 1 tablet Orally Once a day for 30 day(s) Not-Taking Cephalexin 500 MG 1 capsule Orally twi ce a day for 10 days 12/11/2022 Not-Taking vitamin D Active Multi Vitamin Daily Active Metoprolol Succinate twice a day Active Flomax Active Social History Tobacco Use: Social History Observation Description Date Details (start date - stop date) Never Smoker NA - NA Tobacco use other than smoking: Question Answer Notes Are you an other tobacco user? No Tobacco Control (Standard) Question Answer Notes Tobacco use: Nonsmoker Additional Findings: Tobacco non-user Current no nsmoker AUDIT-C (Standard) Question Answer Notes Did you have a drink containing alcohol in the p ast year? 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, with unspecified presence of clinical manifestation I70.203 ; Pain in right toe(s) M79.674 ; Pain in left toe(s) M79.675 and Ingrown nail L60.0 Assessments Encounter Date Diagnosis (ICD Code) Assessment Notes Treatment Notes Treatment Clinical Notes Section Notes 08/04/2024 Tinea unguium (ICD-10 - B35.1) 08/04/2024 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, with unspecified presence of clinical manifestation (ICD-10 - I70.203) Q7(A), Q8(2B), Q9(1B,2C) 08/04/2024 Pain in right toe(s) (ICD-10 - M79.674) 08/04/2024 Pain in left toe(s) (ICD-10 - M79.675) 08/04/2024 Ingrown nail (ICD-10 - L60.0) Plan Of Treatment Pending Test Test Name Order Date 31810-SGALOBS NAIL, 6 OR MORE 08/04/2024 05226-Mumgqfjy Plate 08/04/2024 71800-YIBG SKIN LESIONS, OVER 4 08/05/19 25 Next Appt Details Follow Up: 2 Weeks, Reason: Provider Name:Yelena Hargrove , 11/06/2024 09:00:00 AM, [address] [place] [address], [phone], Provider Name:Yelena Hargrove , 02/02/2025 09:00:00 AM, [address] [place] [address], [phone], Procedure Notes * Category Sub-Category Detail Notes Nail Avulsion Procedure A fine sterile e levator was placed between the eponychium, nail fold, and nail plate to separate the structures. A sterile nail splitter, and/or sterile 316 blade, was then used to longitudinally section the nail along its entire length through the eponychium to the area under the nail fold. The offending portion of nail was from the nail bed with a rolling action and then removed with a hemostat. No underlying bone was identified. There was minimal bleeding as hemostasis was achieved through the temporary use of either a digital tourniquet or the aforementioned local with epinephrine. A bacitracin sterile dressing was applied. Local wound aftercare instructions were discussed and dispensed. The patient was informed of both conservative and future surgical procedures to prevent recurrence. Tylenol or Motrin was recommended for pain or discomfort - 10624, CIRCULATION: Matricectomy deferred at this time due to compromised circulation risk Anesthesia , was accomplished T OPICALLY with Lidocaine Hydrochloride Jelly 2 percent Location , Bilateral nail bor mahnaz, TA Debride Nail 6-10 Nail debridement Due to the cl inical pathology outlined in the exam findings, performance of this nail treatment is medically necessary as its management by an unskilled/untrained nonprofessional would put this patients foot and overall health at risk. Therefore, debridement to affected nail(s), as described in exam ( T1, T2, T3, T4, T6, T7, T8, T9, ), was performed exclusively by the physician of record to reduce/remove overall nail length, girth, thickness, subungual debris, and necrotic tissue, by manual and/or electrical means through the use of a nail nipper and/or dremel-type grinder set up operator surface, to a more viable healthy nail plate [...] to maintain effectiveness in symptomatic relief - 67936 Keratoma Treatment Parring or Cutting o f Benign Hyperkeratotic Lesion(s) (-57) More than 4 Lesions - Due to the a t risk nature of the patients medical condition as documented in the exam findings, performance of this keratoderma treatment is medically necessary as its management by an unskilled/untrained nonprofessional would put this patients foot and overall health at risk. Therefore, the benign hyperkeratotic lesions, (_6_) in total, locations as stated and described in the exam ( Midfoot B/L, , Heel(s) , B/L , SUB MTH (s) , 1 , , IPJ, T5_ ), were pared, and/or cut utilizing a sterile 15 blade, tissue nippers, and/or power dremel instrumentation by the physician of record - 94596, Q8 Progress Notes * ZAHEERKamari NOLAN CDOB: [birth year] (89 yo M)Acc No.[id number]:08/04/2024 Progress Note Patient:?Kamari SCHWAB C Provider:?Yelena Hargrove DPM :1935???Age:89 Y???Sex:Male Geovany e:08/04/2024 Address:[address] [place] [address] Pcp:Surya Pro Subjective: * Chief Complaints: * ???At Risk FootcarePainful N ail(s) aggravated by shoes and causing difficulty standing/walkingIngrown Nail * HPI: ???At Risk footcare:?Pt States Last PCP Visit:?Date?05/05/2024 ???Painful Nails:?Pt States Last PCP Visit:?Date:?05/05/2024 * ROS:?General/Constitutional:?Nausea?denies.?Vomiting?denies.?Hunger Thirst?denies.?Loss appetite?denies.?Chills?denies.?Fatigue?denies.?Fever?denies.?Night Sweats?denies.?Unexplained weight loss?denies.?Ophthalmologic:?Blurred [...] History:?heart surg yudith unspecified 2002left hip replacement 2001right knee replacement 2009shoulder surgery 89 * [place]/Major Diagno stic Procedure[place] [place]St[place]3 day stay 02/03/2018[facility]- F/u apt pt on the floor - didn't fall 09/17/2022[facility]- pt fell, broke back [facility] 08/2023 * Family History:?Mother: dece ased, heart condition, diagnosed with Unspecified heart disease.?Father: .?1 son(s) , 1 daughter(s) . .? * Social History:?Tobacco Use:?Tobacco use other than smoking?Are you an other tobacco user??No ?Tobacco Control (Standard)?Tobacco use:?Nonsmoker ?Additional Findings: Tobacco non-user?Current nonsmoker ???Drugs/Alcohol:?Drugs?Have you used drugs other than those for medical reasons in the past 12 months??No ???Miscellaneous:?Caffeine: yes, frequency:, 1-2 cups per day. ?Children: yes, yes. ?Exercise: no. ?Marital status: . ?Occupation: Retired. ???Drug/Alcohol:?AUDIT-C (Standard)?Did you have a drink containing alcohol in the past year??No ?Points?0 ?Interpretation?Negative * Medications:?TakingWixela In hub Flomax Metoprolol Succinate twice a day Multi Vitamin Daily vitamin D Taking Wixela Inhub Taking Flomax Taking Metoprolol Succinate twice a day Taking Multi Vitamin Daily Taking vitamin D Not-Taking/PRNCephalexin 500 MG Capsule 1 capsule Orally twice a day Aspirin 81 MG Tablet Chewable 1 tablet Orally Once a day [place] 3-6-9 Complex Medication List reviewed and reconciled with the patientNot-Taking/PRN Cephalexin 500 MG Capsule 1 capsule Orally twice a day Not-Taking/PRN Aspirin 81 MG Tablet Chewable 1 tablet Orally Once a day Not-Taking/PRN [place] 3-6-9 Complex Medication List reviewed and reconciled [...] serves as own historian for office visit today.?Neurological: ?SENSORY:?Neurological exam reveals intact sensorium, pain sensation [...] , non-pitting , B/L.?CLAUDICATION (C):?denies, B/L.?REST PAIN:?denies, B/L.?Dermatologic: ?SKIN FINDINGS:?Skin exam reveals Keratotic lesion(s) located at , Midfoot B/L, , Heel(s) , B/L , SUB MTH (s) , 1 , , IPJ, T5.?Nails: ?NAILS are:?elongated,overgrown,dystrophic,greater than 3mm thick,discolored and friable with crumbly malodorous subungual debris, with pain on palpation,?T1, T2, T3, T4, T6, T7, T8, T9.?Ingrown Nail: ?INSPECTION:?Reveals nail incurvation, pain on palpation, groove hypertrophy, groove ischemia, Bilateral nail borders, TA.? 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 Plan: * Treatment: 2.?Tinea unguium?Procedure: 94141-PODYCJO NAIL, 6 OR MORE 3.?Ingrown nail?Procedure: 17717-Ptgpcsbc Plate * Procedures:?Debride Nail 6-10:?Nail debridement?Due to the clinical pathology outlined in the exam findings, performance of this nail treatment is medically necessary as its management by an unskilled/untrained nonprofessional would put this patients foot and overall health at risk. Therefore, debridement to affected nail(s), as described in exam ( T1, T2, T3, T4, T6, T7, T8, T9, ), was performed exclusively by the physician of record to reduce/remove overall nail length, girth, thickness, subungual debris, and necrotic tissue, by manual and/or electrical means through the use of a nail nipper and/or dremel-type grinder set up operator surface, to a more viable healthy nail plate [...] to maintain effectiveness in symptomatic relief - 07283.?Keratoma Treatment:?Parring or Cutting of Benign Hyperkeratotic Lesion(s)?(-57) More than 4 Lesions - Due to the at risk nature of the patients medical condition as documented in the exam findings, performance of this keratoderma treatment is medically necessary as its management by an unskilled/untrained nonprofessional would put this patients foot and overall health at risk. Therefore, the benign hyperkeratotic lesions, (_6_) in total, locations as stated and described in the exam ( Midfoot B/L, , Heel(s) , B/L , SUB MTH (s) , 1 , , IPJ, T5_ ), were pared, and/or cut utilizing a sterile 15 blade, tissue nippers, and/or power dremel instrumentation by the physician of record - 37011, Q8.?Nail Avulsion:?Location?, Bilateral nail border, TA.?Anesthesia?, was accomplished TOPICALLY with Lidocaine Hydrochloride Jelly 2 percent.?Procedure?A fine sterile elevator was placed between the eponychium, nail fold, and nail plate to separate the structures. A sterile nail splitter, and/or sterile 316 blade, was then used to longitudinally section the nail along its entire length through the eponychium to the area under the nail fold. The offending portion of nail was from the nail bed with a rolling action and then removed with a hemostat. No underlying bone was identified. There was minimal bleeding as hemostasis was achieved through the temporary use of either a digital tourniquet or the aforementioned local with epinephrine. A bacitracin sterile dressing was applied. Local wound aftercare instructions were discussed and dispensed. The patient was informed of both conservative and future surgical procedures to prevent recurrence. Tylenol or Motrin was recommended for pain or discomfort - 02376, CIRCULATION: Matricectomy deferred at this time due to compromised circulation risk.? * Procedure Codes:?49991 DEBRI DE NAIL, 6 OR MORE, Modifiers: XS 98602 Avulsion Plate, [place] [address] TRIM SKIN LESIONS, OVER 4, Modifiers: Q8 * Preventive Medicine:? ??Screening/Special Tests:?Fall Risk?Screening:?No falls in the past year ?FALLS: Screening for Future Fall Risk?Have you had any falls with injury in the past year??No * Follow Up:?2 Weeks * Images: * Sign off status: Completed true * Provider:?Yelena Hargrove DPM Date:?2024 Generated for Louisa good/Bandar/eTrosalbasmitting on:?08/27/2024 10:45 AM EDT History and Physical Notes * HPI (History of Present Illness) Category Sub-Category Detail Notes Category Not es Painful Nails Pt States Last PCP Visit: Date:: 05/05/2024 At Risk footcare Pt States Last PCP Visit: Date: Examination Category Sub-Category Detail Notes Category Not es Ingrown Nail INSPECTION: Reveals nail inc urvation, pain on palpation, groove hypertrophy, groove ischemia, Bilateral nail borders, TA Neurological SENSORY: Neurological exa m reveals intact [...] , SUB MTH (s) , 1 , , IPJ, T5 ULCER: General Examination GENERAL APPEARANCE: Reveals a [...] malodorous subungual debris, with pain on palpation, T1, T2, T3, T4, T6, T7, T8, T9
--- OUTSIDE RECORDS SUMMARY | 2024-08-27 10:45 | XMS_ITS | Clinical Summary ---
Author Organization [facility] ity Address [address] [place] [address] Care Team Providers Care Deputy Sheriff Chief Name Role Phone Unavailable Primary Care Provider Unavailabl e Social History Tobacco Use Types Packs/Day Years Used Date Smoking Tobacco: Never Assessed Sex and Gender Information Value Date Recorded Sex Assigned at Not on file Legal Sex Male 1:39 PM EDT Gender Identity Not on file Sexual Orientation Not on file Plan of Treatment Health Maintenance Due Date Last Done Comments DTaP,Tdap,and Td Vaccines (1 - Tdap) [birth year]04/1954 Pneumococcal Vaccine: 50+ Ye ars (1 of 1 - PCV) 1986 Zoster Vaccines (1 of 2) 1986 RSV Immunization Adult Patie nts (1 - 1-dose 75+ series) 08/04/2011 Cholesterol Screening (Lipid Panel) 11/30/2023 Depression Screening 11/30/2023 Falls Risk Assessment 11/30/2023 Social Influencers of Health Screening 11/30/2023 COVID-19 Vaccine ( - 2023-2 5 season) 2023 Influenza Vaccine (Season Ended) 2024 HIB Vaccines Aged Out No longer eligi ble based on patient's age to complete this topic HPV Vaccines Aged Out No longer eligi ble based on patient's age to complete this topic Hepatitis A Vaccines Aged Out No long er eligible based on patient's age to complete this topic Hepatitis B Vaccines Aged Out No long er eligible based on patient's age to complete this topic IPV Vaccines Aged Out No longer eligi ble based on patient's age to complete this topic MMR Vaccines Aged Out No longer eligi ble based on patient's age to complete this topic Meningococcal ACWY Vaccine Aged Out N o longer eligible based on patient's age to complete this topic Meningococcal B Vaccine Aged Out No l onger eligible based on patient's age to complete this topic RSV Immunization Patients Un mahnaz 20 months Aged Out No longer eligible b ased on patient's age to complete this topic Varicella Vaccines Aged Out No longer eligible based on patient's age to complete this topic Advance Directives Documents on File Type Date Recorded 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
--- OUTSIDE RECORDS SUMMARY | 2024-08-27 10:45 | XMS_ITS | Patient Health Record ---
Author Organization [facility] Address [address] [place] [address] Care Team Providers Care Decommissioning Well Site Manager Name Role Phone Surya Pro Primary Care Provider Black, Yelena Unavailable [phone] Allergies No Known Allergies Reason For Referral No Information Medications Medication SIG (Take, Route, Frequency, Duration) Notes Start Date End Date Status Multi Vitamin Daily Active Metoprolol Succinate twice a day Active Flomax Active Wixela Inhub Active [place] 3-6-9 Complex Not-Taking Aspirin 81 MG 1 tablet Orally Once a day for 30 day(s) Not-Taking Cephalexin 500 MG 1 capsule Orally twi ce a day for 10 days 12/11/2022 Not-Taking vitamin D Active Immunizations Vaccine Route Administration Date Status Comme [...] Problem Nonstageable pressure ulcer of left foot (17242632911884301 ) 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) Active confirmed Resistant to previous conservative treatment Problem Atherosclerosis of guidivil[place] arteries of the extremities (245685727701162) Atherosclerosis of guid[place] artery of both lower extremities, with unspecified presence of clinical manifestation (I70.203) Active confirmed Q7(A), Q8(2B), Q9(1B,2C) Problem 15121152012500711 Ulcer of left midfoot limited to breakdown of skin (L97.421) Active confirmed Response to treatment - Improvement Problem 40660059 Essential hypertension (I10) Active confirmed Vital Signs Blood pressure diastolic 60 mm Hg 08/04/2024 Height 5 ft 10 in in 08/04/2024 Blood pressure systolic 170 mm Hg 08/04/2024 Weight 162 lbs 08/04/2024 BMI 23.24 kg/m2 08/04/2024 Procedures Procedure Date Ordered Date Performed Result Body Sit e 53642-YLJXZQX NAIL, 6 OR MORE 11/21/2023 N/A 17352-Kaazygdm Plate 11/21/2023 N/A 46311-QKZY SKIN LESIONS, OVER 4 11/21/2023 N/A 93834-PHVJOYQ NAIL, 6 OR MORE 02/04/2024 N/A 42060 I&D ABSCESS- SIMPLE,SINGLE 02/04/2024 N/A 00156-WAMU SKIN LESIONS, OVER 4 02/04/2024 N/A 10613-IKSCXTO NAIL, 6 OR MORE 04/29/2024 N/A 86355-LODT SKIN LESIONS, OVER 4 04/29/2024 N/A 03655-VMBNCUC NAIL, 6 OR MORE 08/04/2024 N/A 99576-Qduinopx Plate 08/04/2024 N/A 94525-PRDN SKIN LESIONS, OVER 4 08/04/2024 N/A Encounters Encounter Location Date Provider [facility] [address] [place] [address] 11/21/2023 Yelena Black Tinea unguium B35.1 ; Unspecified atherosclerosis of guidiville arteries of extremities, bilateral legs I70.203 ; Pain in right toe(s) M79.674 ; Pain in left toe(s) M79.675 and Ingrown nail L60.0 [facility] [address] [place] [address] 02/04/2024 Yelena Black Tinea unguium B35.1 ; Abscess of toe, right L02.611 ; Pain in right toe(s) M79.674 ; Pain in left toe(s) M79.675 and Atherosclerosis of guidiville artery of both lower extremities, with unspecified presence of clinical manifestation I70.[address] [address] 04/29/2024 Yelena Black Tinea unguium B35.1 ; Atherosclerosis of guidiville artery of both lower extremities, with unspecified presence of clinical manifestation I70.203 ; Pain in right toe(s) M79.674 and Pain in left toe(s) M79.[address] [address] 08/04/2024 Yelena Black Tinea unguium B35.1 ; Atherosclerosis of guid[place] artery of both lower extremities, with unspecified presence of clinical manifestation I70.203 ; Pain in right toe(s) M79.674 ; Pain in left toe(s) M79.675 and Ingrown nail L60.[address] [address] 01/02/2024 Yelena Black Assessments Encounter Date Diagnosis (ICD Code) Assessment Notes Treatment Notes Treatment Clinical Notes Section Notes 11/21/2023 Tinea unguium (ICD-10 - B35.1) 11/21/2023 Unspecified atherosclerosis of guidiville arteries of extremities, bilateral legs (ICD-10 - I70.203) 02/04/2024 Tinea unguium (ICD-10 - B35.1) 02/04/2024 Abscess of toe, right (ICD-10 - L02.611) Patient Educated with: WOUND CARE INSTRUCTIONS. pdf (WOUND CARE INSTRUCTIONS. pdf) 04/29/2024 Tinea unguium (ICD-10 - B35.1) 04/29/2024 Atherosclerosis of guidiville artery of both lower extremities, with unspecified presence of clinical manifestation (ICD-10 - I70.203) Q7(A), Q8(2B), Q9(1B,2C) 08/04/2024 Tinea unguium (ICD-10 - B35.1) 04/29/2024 Pain in right toe(s) (ICD-10 - M79.674) 08/04/2024 Atherosclerosis of guid[place]le artery of both lower extremities, with unspecified presence of clinical manifestation (ICD-10 - I70.203) Q7(A), Q8(2B), Q9(1B,2C) 02/04/2024 Pain in right toe(s) (ICD-10 - M79.674) 11/21/2023 Pain in right toe(s) (ICD-10 - M79.674) 11/21/2023 Pain in left toe(s) (ICD-10 - M79.675) 02/04/2024 Pain in left toe(s) (ICD-10 - M79.675) 04/29/2024 Pain in left toe(s) (ICD-10 - M79.675) 08/04/2024 Pain in right toe(s) (ICD-10 - M79.674) 08/04/2024 Pain in left toe(s) (ICD-10 - M79.675) 02/04/2024 Atherosclerosis of guidiville artery of both lower extremities, with unspecified presence of clinical manifestation (ICD-10 - I70.203) Q7(A), Q8(2B), Q9(1B,2C) 11/21/2023 Ingrown nail (ICD-10 - L60.0) 08/04/2024 Ingrown nail (ICD-10 - L60.0) 04/29/2024 Other Plan Of Treatment Pending Test Test Name Order Date 36767-FSEDYUI NAIL, 6 OR MORE 01/30/2011 39893-VCSCAZU NAIL, 6 OR MORE 05/03/2011 97933-POHOPWL NAIL, 6 OR MORE 07/12/2011 58393-NZMYQDL NAIL, 6 OR MORE 01/03/2012 35693-NFKPPGM NAIL, 6 OR MORE 02/03/2013 25299-NTODEMF NAIL, 6 OR MORE 05/12/2013 02551-BNCGJCG NAIL, 6 OR MORE 06/24/2014 87833-KIKLIYB NAIL, 6 OR MORE 09/02/2014 79861-VTOUVTB NAIL, 6 OR MORE 12/16/2014 65287-USHCUHT NAIL, 6 OR MORE 03/22/2015 28644-CHCLDGB NAIL, 6 OR MORE 06/23/2015 80680-OVDIHPA NAIL, 6 OR MORE 09/22/2015 76129-HROUTLK NAIL, 6 OR MORE 12/02/2015 66811-XFABQAZ NAIL, 6 OR MORE 02/03/2016 74137-UWUTNAH NAIL, 6 OR MORE 05/08/2016 53569-UZYTSNH NAIL, 6 OR MORE 08/10/2016 10917-QMLCFVH NAIL, 6 OR MORE 11/13/2016 29635-RFQWVIK NAIL, 6 OR MORE 02/12/2017 73064-QQTFNRV NAIL, 6 OR MORE 05/21/2017 93282-VEHOTAV NAIL, 6 OR MORE 08/20/2017 44845-APUSVUL NAIL, 6 OR MORE 11/22/2017 45729-DSNIKKR NAIL, 6 OR MORE 02/21/2018 97912-GCOGIWJ NAIL, 6 OR MORE 05/23/2018 87919-YGQIVAZ NAIL, 6 OR MORE 08/22/2018 88143-QJYAFKW NAIL, 6 OR MORE 11/18/2018 92909-WIZNHBN NAIL, 6 OR MORE 02/20/2019 07026-ULINVTH NAIL, 6 OR MORE 05/26/2019 37431-ZYCELVW NAIL, 6 OR MORE 08/25/2019 30630-LBOLFWK NAIL, 6 OR MORE 12/01/2019 49779-BTLSXTK NAIL, 6 OR MORE 03/01/2020 73823-TDNGGAX NAIL, 6 OR MORE 06/03/2020 98686-YDSPTWA NAIL, 6 OR MORE 09/02/2020 76222-MJOMQKF NAIL, 6 OR MORE 12/02/2020 90478-CGVZNPI NAIL, 6 OR MORE 03/07/2021 04715-LQALKMP NAIL, 6 OR MORE 06/22/2021 40855-XTWGBYH NAIL, 6 OR MORE 09/19/2021 44123-LSLQDZJ NAIL, 6 OR MORE 12/22/2021 89953-DHZNRZJ NAIL, 6 OR MORE 03/27/2022 54281-OYKAVGM NAIL, 6 OR MORE 06/29/2022 70926-WURJKEV NAIL, 6 OR MORE 10/02/2022 73026-IIOQHZD NAIL, 6 OR MORE 12/11/2022 95761-JKDUEJU NAIL, 6 OR MORE 03/26/2023 97086-YOAVEMT NAIL, 6 OR MORE 06/11/2023 14700-EJVIYSJ NAIL, 6 OR MORE 08/23/2023 48473-IKRWAGM NAIL, 6 OR MORE 11/21/2023 79893-IISLVRE NAIL, 6 OR MORE 02/04/2024 57618-LAGCURM NAIL, 6 OR MORE 04/29/2024 40989-MKLNCPL NAIL, 6 OR MORE 08/04/2024 33161-Izxyofyg Plate 08/04/2024 78051-Asftfxma Plate 11/21/2023 07552-Lkwlmjiv Plate 10/02/2022 57256-Paokgpam Plate 08/23/2023 91534-Gxhodrnd Plate 06/22/2021 40937-Snahwqga Plate 09/19/2021 92786-Zuaokerj Plate 09/02/2020 39602-Uagbmcjx Plate 12/02/2020 26168-Afuivcmt Plate 12/01/2019 44793-Cwywsfvf Plate 03/01/2020 57313-Pdfdqzqa Plate 02/20/2019 22131-Komjicvz Plate 08/25/2019 44054-Wfltdzsm Plate 08/22/2018 43846-Shdqemsp Plate 11/18/2018 84855-Hwtsknbr Plate 05/23/2018 55661-Audllkou Plate 08/20/2017 40143-Onzfeoig Plate 05/21/2017 27487-Vorkiook Plate 02/12/2017 69738-Uavqqgjl Plate 11/13/2016 89225-Ucutufgp Plate 05/08/2016 12204-Icedpyln Plate 12/02/2015 78884-Yztnzann Plate 06/23/2015 63423-Gflaxfyl Plate 03/22/2015 54402-Vutmtkue Plate 12/16/2014 86112-Fzbqnyxr Plate 06/24/2014 75544-Vhhgwjzo Plate 10/12/2011 28002-Hhgvmgeq Plate 09/02/2014 20118-Zomaliat Plate 12/01/2013 66071-Wjhgenmc Plate 03/09/2014 28177-Dhnmqwow Plate 08/18/2013 56522-Syjplhtu Plate 02/03/2013 98621-Zbgvqbki Plate 05/12/2013 98653-Jhxxylqr Plate 01/03/2012 12397-Aqsmkoow Plate 05/03/2011 17039-Bzykzmrh Plate 01/30/2011 65412-Lmlerqce Plate 07/24/2012 16245-Qseezdyi Plate 10/21/2012 27507-Ejfigcfb Plate Each Additional 16472-Vauezrfv Plate Each Additional 08/2011 88684-Tkbxleiv Plate Each Additional 97503-Fyosfdas Plate Each Additional 01/2014 51596-Jwetdphv Plate Each Additional 07/2013 49081-Bfyliqyf Plate Each Additional 42593-Vuhoiicq Plate Each Additional 05971-Bnwigauj Plate Each Additional 09/2014 14320-Yewqcfhv Plate Each Additional 81573-Ydvafuow Plate Each Additional 09/2020 22570- Debride <25 sq cm 09/02/2020 27403- Debride <25 sq cm 12/02/2020 84150- Debride <25 sq cm 06/03/2020 60988- Debride <25 sq cm 03/07/2021 07463- Debride <25 sq cm 09/19/2021 72608- Debride <25 sq cm 06/22/2021 56263- Debride <25 sq cm 08/22/2018 54258- Debride <25 sq cm 05/26/2019 21107- Debride <25 sq cm 02/20/2019 13868- Debride <25 sq cm 08/25/2019 27471- Debride <25 sq cm 03/01/2020 78703- Debride <25 sq cm 12/01/2019 52420- Debride <25 sq cm 12/22/2021 13040- Debride <25 sq cm 06/29/2022 86620- Debride <25 sq cm 03/27/2022 02202- Debride <25 sq cm 06/11/2023 43887- Debride <25 sq cm 12/25/2022 35431- Debride <25 sq cm 03/26/2023 85163- Debride <25 sq cm 10/02/2022 83126- Debride <25 sq cm 08/23/2023 47014- Debride <25 sq cm 05/21/2017 34247- Debride <25 sq cm 02/12/2017 61837- Debride <25 sq cm 08/20/2017 80398- Debride <25 sq cm 11/22/2017 11375- Debride <25 sq cm 05/23/2018 97582- Debride <25 sq cm 02/21/2018 04250- Debride <25 sq cm 02/03/2016 92744- Debride <25 sq cm 05/08/2016 88918- Debride <25 sq cm 08/10/2016 96694- Debride <25 sq cm 11/13/2016 03213- Debride <25 sq cm 12/01/2013 77497- Debride <25 sq cm 03/09/2014 05052- Debride <25 sq cm 08/18/2013 51392- Debride <25 sq cm 05/12/2013 07622- Debride <25 sq cm 02/03/2013 96507- Debride <25 sq cm 04/03/2012 07042- Debride <25 sq cm 07/24/2012 60595- Debride <25 sq cm 10/21/2012 18189- Debride <25 sq cm 05/03/2011 22080- Debride <25 sq cm 01/03/2012 04027- Debride <25 sq cm 07/12/2011 16300- Debride <25 sq cm 10/12/2011 18904 I&D ABSCESS- SIMPLE,SINGLE 012 23277 I&D ABSCESS- SIMPLE,SINGLE 012 43947 I&D ABSCESS- SIMPLE,SINGLE 024 22558 I&D ABSCESS- SIMPLE,SINGLE 023 49242-CAQI SKIN LESIONS, OVER 4 08/05/19 25 36496-RMGZ SKIN LESIONS, OVER 4 04/29/20 24 29848-FVLI SKIN LESIONS, OVER 4 11/21/19 24 41491-RTYN SKIN LESIONS, OVER 4 02/04/20 24 Next Appt Details Provider Name:Yelena Hargrove , 11/06/2024 09:00:00 AM, [address] [place] [address], [phone], Provider Name:Yelena Hargrove , 02/02/2025 09:00:00 AM, [address] [place] [address], [phone], Insurance Providers Payer Name Payer Address Payer Phone Subscriber Number Group Number Insured Name Patient Relationship to Insured Coverage Start Date Coverage End Date Medicare National [employer] [address] [place] [address] [id number] Kamari Schwab Self - patient is the insured [facility] [address] [place] [address] [id number] Kamari Schwab Self - patient is the insured Medical (General) History Medical History History ICD Code stroke joint implants/screws heart disease Arthritis TIA Stroke Surgical History Surgery Date(Month/Year) heart surgery unspecified 2001 left hip replacement 2001 right knee replacement 2009 shoulder surgery 1949 Hospitalization History Reason Date(Month/Year) [facility] [place] apt pt on the floor - didn't fa ll 09/17/2022 [facility]: am[place] for TIA/Stroke-3 day stay [facility]- pt [facility], broke back [facility]
--- OUTSIDE RECORDS SUMMARY | 2024-08-27 10:45 | XMS_ITS ---
Author Organization [facility] Address [address] [place] [address] Care Team Providers Care Human Resources Benefits Specialist Name Role Phone Surya Pro Primary Care Provider Black, Yelena Unavailable [phone] Allergies No Known Allergies REASON FOR VISIT At Risk Footcare, Painful Nail(s) aggravated by shoes and causing difficulty standing/walking Medications Medication SIG (Take, Route, Frequency, Duration) Notes Start Date End Date Status vitamin D Active Multi Vitamin Daily Active [place] 3-6-9 Complex Not-Taking Aspirin 81 MG 1 [...] Problem Status W/U Status Risk Notes Problem 71042441 Essential hypertension (I10) Active confirmed Vital Signs Height 5 ft 10 in in 04/29/2024 Weight 162 lbs 04/29/2024 BMI 23.24 kg/m2 04/29/2024 Blood pressure systolic 170 mm Hg 04/29/20 24 Blood pressure diastolic 60 mm Hg 024 Procedures Procedure Date Ordered Date Performed Result Body Sit e 79799-JRFPHGF NAIL, 6 OR MORE 04/29/2024 N/A 12805-HMCH SKIN LESIONS, OVER 4 04/29/2024 N/A Encounters Encounter Location Date Provider Diagnosis [facility] [address] [address] 04/29/2024 Yelena Hargrove Tinea unguium B35.1 ; Atherosclerosis of nik[place] artery of both lower extremities, with unspecified presence of clinical manifestation I70.203 ; Pain in right toe(s) M79.674 and Pain in left toe(s) M79.675 Assessments Encounter Date Diagnosis (ICD Code) Assessment Notes Treatment Notes Treatment Clinical Notes Section Notes 04/29/2024 Tinea unguium (ICD-10 - B35.1) 04/29/2024 Atherosclerosis of nikolski artery of both lower extremities, with unspecified presence of clinical manifestation (ICD-10 - I70.203) Q7(A), Q8(2B), Q9(1B,2C) 04/29/2024 Pain in right toe(s) (ICD-10 - M79.674) 04/29/2024 Pain in left toe(s) (ICD-10 - M79.675) 04/29/2024 Other Plan Of Treatment Pending Test Test Name Order Date 87955-WNLBLYD NAIL, 6 OR MORE 04/29/2024 40937-QGZL SKIN LESIONS, OVER 4 04/29/20 24 Next Appt Details Follow Up: prn, Reason: Provider Name:Yelena Hargrove , 11/06/2024 09:00:00 AM, [address] [place] [address], [phone], Provider Name:Yelena Hargrove , 02/02/2025 09:00:00 AM, [address] [place] [address], [phone], Procedure Notes * Category Sub-Category Detail Notes [...] use of a nail nipper and/or dremel-type sapphire stylus grinder, to a more viable healthy nail plate [...] to maintain effectiveness in symptomatic relief - 22514 Keratoma Treatment Parring or Cutting o f [...] instrumentation by the physician of record - 64945 Progress Notes * Kamari SCHWAB CDOB: [birth year] (88 yo M)Acc No.[id number]:04/29/2024 Progress Note Patient:?Kamari SCHWAB Provider:?Yelena Hargrove DPM :1935???Age:88 Y???Sex:Male Geovany e:04/29/2024 Address:[address] [place] [address] Pcp:Duncan Hodgson MD Subjective: * Chief Complaints: [...] 2009shoulder surgery 194 * Hospitalization/Major Diagno stic Procedure:?[facility]: amitted for TIA/Stroke-3 day stay 02/03/2018[facility]- F/u apt pt on the floor - didn't fall 09/17/2022[facility]- pt fell, broke back [facility] 08/2023 * Family History:?Mother: dece [...] Chewable 1 tablet Orally Once a day [place] 3-6-9 Complex Medication List reviewed and reconciled with the patientNot-Taking/PRN Cephalexin 500 MG Capsule 1 capsule Orally twice a day Not-Taking/PRN Aspirin 81 MG Tablet Chewable 1 tablet Orally Once a day Not-Taking/PRN [place] 3-6-9 Complex Medication List reviewed and reconciled [...] Assessment: 1.?Tinea unguium - B35.1???2 .?Atherosclerosis of nik[place]ki artery of both lower extremities, with unspecified presence of clinical manifestation - I70.203 (Primary)???Notes :Q7(A), Q8(2B), Q9(1B,2C)???3.?Pain in right toe(s) - M79.674???4.?Pain in left toe(s) - M79.675??? Plan: * Treatment: 2.?Tinea unguium?Procedure: 52986-LVUSFNA NAIL, 6 OR MORE * Procedures:?Debride Nail [...] use of a nail nipper and/or dremel-type sapphire stylus grinder, to a more viable healthy nail plate [...] to maintain effectiveness in symptomatic relief - 99715.?Keratoma Treatment:?Parring or Cutting of Benign Hyperkeratotic Lesion(s)?... [...] instrumentation by the physician of record - 81091.? * Procedure Codes:?18824 DEBRI DE NAIL, 6 OR MORE, Modifiers: XS 42728 TRIM SKIN LESIONS, OVER 4, Modifiers: Q8 * Follow Up:?prn * Images: * Sign off status: Completed true * Provider:?Yelena Hargrove DPM Date:?2023 Generated for Louisa good/Bandar/Antolin on:?08/27/2024 10:44 AM EDT History and Physical Notes * [...]
== END 2024-08-27 10:49 | disposition home or self-care (01) ==
LOC: HO.HMCHD 09:51
PROVIDERS: PCP Internal Medicine; Visit Provider Internal Medicine
DX: I10 Essential (primary) hypertension (principal); N40.0 Benign prostatic hyperplasia without lower urinary tract symptoms

== ENCOUNTER → 2024-08-27 09:51 | Outpatient (BNVA) | payer MEDICARE, SELFPAY | PROVIDERS: PCP Internal Medicine; Visit Provider Internal Medicine | DX: I10 Essential (primary) hypertension (principal); N40.0 Benign prostatic hyperplasia without lower urinary tract symptoms | CPT/HCPCS: 99202 ==

== ENCOUNTER 2024-10-02 14:17 | Emergency (ER) | payer MEDICARE, SELFPAY ==
[2024-10-02] VITALS (8 sets, daily range): BP systolic 127–168; BP diastolic 66–88; PULSE 62–86; RESP 13–18; TEMP 36.6–37.8; O2SAT 95–99; BMI 23.9
--- NOTE | ~2024-10-02 | XR_ITS ---
EXAMINATION: XR CHEST CLINICAL INFORMATION: weakness COMPARISON: April 02, 2021 TECHNIQUE: Frontal view of the chest was obtained. FINDINGS: Ascites within normal limits. Lungs are clear. 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 XR/XR chest 1V IMPRESSION: No acute disease. End-stage degenerative changes, left shoulder joint. Electronically signed by: Giles Rose MD 10/02/2024 05:29 PM EDT
--- NOTE | 2024-10-02 14:49 | ECG_ITS ---
Test Reason : GENERAL WEAKNESS Blood Pressure : */* mmHG Vent. Rate : 73 BPM Atrial Rate : 73 BPM P-R Int : 232 ms QRS Dur : 146 ms QT Int : 412 ms P-R-T Axes : 46 -13 3 degrees QTcB Int : 453 ms Sinus rhythm with 1st degree A-V block Right bundle branch block Minimal voltage criteria for LVH, may be normal variant ( R in aVL ) Abnormal ECG When compared with ECG of 03-Sep-2023 09:52, KS interval has increased Referred By: Generic ED Physician Electronically Signed By: AUDRA JOHNSTON
--- NOTE | 2024-10-02 15:05 | PC.NURSE ---
89 M presents to ED d/t bilateral lower extremitity weakness, unable to get up from toilet. A+OX4 and normally ambulates but sts started feeling weak 2 months ago and has gotten worse today. Bilateral legs equal in strength but seem a bit weak, pt had trouble flexing and bending foot. PERRLA and able to follow commands appropriately. Some edema noted in bilat legs. denies SOB or CP. RR even and unlabored. Lung sounds clear bilaterally.
[2024-10-02 15:07] LABS: MANUAL DIFF FLAG NO
[2024-10-02 15:08] LABS: Basophils Percent Auto 0.4 % (0-2); Eosinophils Absolute Auto 0.2 X10*3/uL (0.0-0.4); Eosinophils Percent Auto 2.5 % (0-4); Hematocrit 36.7 % (42.0-52.0); Hemoglobin 12.6 g/dl (14.0-18.0); Imm Gran Abs Auto 0.03 X10*3/uL (0.00-0.03); Imm Gran Pct Auto 0.4 % (0.0-0.4); Lymphocytes Absolute Auto 0.7 X10*3/uL (1.2-4.9); Lymphocytes Percent Auto 9.8 % (20-40); Mean Corpuscular HGB Conc 34.3 g/dl (31.0-36.0); Mean Corpuscular Hemoglobin 33.1 pg (27.0-33.0); Mean Corpuscular Volume 96.3 fL (80.0-98.0); Mean Platelet Volume 9.5 fL (9.4-12.4); Monocytes Absolute Auto 0.8 X10*3/uL (0.1-1.2); Neutrophils Absolute Auto 5.7 x10*3/uL (2.0-8.3); Neutrophils Percent Auto 76.9 % (45-73); Platelet Count 252 X10*3/uL (160-400); Red Blood Count 3.81 X10*6/uL (4.60-5.80); Red Cell Distribution Width 12.3 % (11.0-16.0); White Blood Count 7.5 X10*3/uL (4.8-10.8)
[2024-10-02 15:23] LABS: Alanine Aminotransferase 21 U/L (0-40); Alkaline Phosphatase 169 U/L (39-117); Anion Gap 10 (12-20); Aspartate Amino Transferase 27 U/L (5-37); Bilirubin Direct 0.3 mg/dL (0.0-0.5); Bilirubin Total 0.8 mg/dL (0.0-1.0); Blood Urea Nitrogen 22 mg/dL (9-16); Calcium 9.6 mg/dL (8.4-10.2); Carbon Dioxide 28 mmol/L (22-29); Chloride 101 mmol/L (96-108); Estimated Glomerular Filt Rate > 60; Glucose Random 102 mg/dL (60-115); Lipase 40 U/L (8-78); Potassium 4.3 mmol/L (3.3-5.1); Sodium 135 mmol/L (135-145); Total Protein 6.6 g/dL (6.5-8.0)
[2024-10-02 15:30] LABS: Troponin-I High Sensitivity 8.4 ng/L (<3.5-35.0)
[2024-10-02 15:32] LABS: B Type Natriuretic Peptide 80 pg/mL (<100)
[2024-10-02 15:45] LABS: Influenza A PCR NEGATIVE (Negative); Influenza B PCR NEGATIVE (Negative); Resp Syncy Virus RNA Qual PCR NEGATIVE (Negative); SARS COV2 PCR INHOUSE NEGATIVE (Negative)
[2024-10-02] MEDS: Acetaminophen 325 MG TABLET 650 MG PO (15:59)
--- NOTE | 2024-10-02 16:02 | ED_ITS ---
HPI - General Adult General Chief complaint: General Medical Stated complaint: INCR WEAKNESS PER EMS Time Seen by Provider: 10/02/24 16:02 Source: patient, family and EMS Mode of arrival: EMS Limitations: no limitations History of Present Illness ED Provider: HPI narrative: Information obtained from patient but mostly his , 89-year-old male with history of prostate issues, some cognitive issues, ambulates with a walker, he has a slow ambulator, but today and in the past few days has been getting weaker and today she could not get him off the toilet when he almost fell but did not. Initially when he presented there was reported was febrile, he was nonfebrile in ED. patient it is an adequate historian, he denies chest pain shortness of breath, has not been able to urinate in the ER, denies abdominal pain, no diarrhea, he has bilateral lower extremity edema this is recurrent and chronic. Related Data Home Medications ?Medication ?Instructions ?Recorded ?Confirmed cholecalciferol (vitamin D3) 25 25 mcg PO DAILY 04/02/21 10/02/24 mcg (1,000 unit) capsule multivitamin 1 tab PO DAILY 04/02/21 10/02/24 tamsulosin 0.4 mg capsule 0.4 mg PO BEDTIME 04/02/21 10/02/24 metoprolol tartrate 50 mg tablet 50 mg PO BID 09/03/23 10/02/24 fluticasone 100 mcg-salmeterol 50 1 ea inhalation BID 10/02/24 10/02/24 mcg/dose blistr powdr for inhalation (Wixela Inhub) Allergies Allergy/AdvReac Type Severity Reaction Status Date / Time No Known Allergies Allergy Verified 10/02/24 14:33 [No Known Allergies*] Review of Systems 2 Constitutional: Constitutional: Reports as per [facility] Past Medical History Medical History Benign enlargement of prostate Essential hypertension Family History Family History (Updated 08/27/24 @ 10:35 by Kelsi Bay MA) Mother Breast cancer Father Lopez Swanson attack Social History Social History Housing: House Patient Tobacco Use Status: Former Tobacco user Smoked in Last 30 Days: No e-Cigarette/Vaping Use: Former Use Use of substances other than those prescribed or required for medical reasons: No Advance Directives: Yes Advance Directives on File: Yes Advance Directives Date on File: 09/04/23 Do you have a plan to hurt others: No Plan service: No Current occupational status: retired Cognitive needs: No Hearing needs: No Vision needs: Yes (reading glasses) Physical Exam ED Vital Signs: Vital Signs - 24 hr 10/02/24 14:30 10/02/24 14:40 10/02/24 15:40 Temperature 98.5 F 100.1 F 98.5 F Pulse Rate 85 75 Respiratory Rate 18 13 Blood Pressure 142/68 H 159/75 H Pulse Oximetry 95 95 Oxygen Delivery Method Room Air Room Air 10/02/24 16:00 10/02/24 18:00 10/02/24 20:17 Temperature 98.5 F 98.2 F 98.2 F Pulse Rate 75 76 77 Respiratory Rate 13 14 18 Blood Pressure 159/75 H 168/88 H 140/82 H Pulse Oximetry 95 99 99 Oxygen Delivery Method Room Air BiPAP Room Air Room Air 10/02/24 22:00 10/03/24 00:17 10/03/24 03:31 Temperature 97.8 F 97.8 F Pulse Rate 62 67 70 Respiratory Rate 15 17 16 Blood Pressure 127/66 145/76 H 173/88 H Pulse Oximetry 99 96 98 Oxygen Delivery Method Room Air Room Air Room Air 10/03/24 05:28 10/03/24 06:40 10/03/24 07:14 Temperature 97.6 F 98.1 F Pulse Rate 68 74 74 Respiratory Rate 16 16 Blood Pressure 153/81 H 143/80 H 143/80 H Pulse Oximetry 95 95 95 Oxygen Delivery Method Room Air Room Air 10/03/24 08:08 10/03/24 09:04 Temperature Pulse Rate 72 72 Respiratory Rate 16 Blood Pressure 143/80 H Pulse Oximetry Oxygen Delivery Method BMI result Body Mass Index 23.9 Const Other: * Gen: ?Elderly patient consistent with his age, no trauma to the head and neck area * HEENT: PERRLA, EOMI, MMM, * CV: RRR, * Resp: ?No wheezing rales rhonchi no stridor moving air well * Abd: ?Bowel sounds are present, no tenderness no rebound no rigidity * MSK: Able to lift his legs off the gurney, there is 1+ pitting edema over the dorsum of the feet bilaterally, he has significant pes planus with when less effect on the left lower extremity distal pulses intact * Skin: Warm, dry, intact, * Neuro: ?Alert and oriented x3, moving upper and lower extremities symmetrically, no obvious facial asymmetry noted Course Reevaluation(s) Reevaluation #1: Time: 12:10 Date: 10/03/24 Provider: Pilar Chandler CNP Patient in physician observation for case management needs. evaluated by Physical therapy with recommendation for short-term rehab, referrals have been placed to acute rehab facilities. No acute events reported overnight.? No current issues or complaints. VS stable. Will continue to monitor. 12:50 - received message from case management that patient has been accepted to [facility] for short-term rehab, anticipate discharge at 15:00 Medications Administered Generic Name Dose Route Start Last Admin Trade Name Freq PRN Reason Stop Dose Admin Acetaminophen 650 mg 10/02/24 16:32 10/03/24 09:09 Acetaminophen 325 Mg Tablet PO 650 mg Q6H PRN Administration Pain, Mild 1-3,fever,headache Fluticasone/Vilanterol 1 puff 10/02/24 17:00 10/03/24 08:07 Fluticasone/Vilanterol 100/25 Blst.W.Dev INHALE 1 puff RDAILY ULISES Administration Melatonin 6 mg 10/02/24 16:32 10/02/24 20:20 Melatonin 3 Mg Tablet PO 6 mg BEDTIME PRN Administration Sleep Metoprolol Tartrate 50 mg 10/02/24 21:00 10/03/24 09:04 Metoprolol Tartrate 50 Mg Tablet PO 50 mg BID ULISES Administration Protocol Multivitamins/Vitamin C 1 tab 10/03/24 09:00 10/03/24 09:04 Multivitamin Tablet PO 1 tab DAILY ULISES Administration Tamsulosin HCl 0.4 mg 10/02/24 21:00 10/02/24 20:20 Tamsulosin Hcl 0.4 Mg Capsule PO 0.4 mg BEDTIME ULISES Administration Vitamin D 25 mcg 10/03/24 09:00 10/03/24 09:04 Cholecalciferol (Vitamin D3) 25 Mcg Tablet PO 25 mcg DAILY ULISES Administration Discontinued Medications Generic Name Dose Route Start Last Admin Trade Name Beth PRN Reason Stop Dose Admin Acetaminophen 650 mg 10/02/24 15:53 10/02/24 15:59 Acetaminophen 325 Mg Tablet PO 10/02/24 15:54 650 mg ONCE ONE Administration Sodium Chloride 500 mls @ 500 mls/hr 10/02/24 16:30 10/02/24 18:00 Ns IV 10/02/24 17:29 Infused .Q1H ULISES Infusion Medical Decision Making Medical Decision Making [facility] Narrative: 16:26 anticipating of the patient is going to be going to rehab or nursing facility, states that he has had issues with ambulating, today could not get up the toilet, usually able to walk up the steps he could not do that either, there was concern whether he was febrile to 100.1, his vital signs here did not reveal any ongoing fever since then he has been 98.5, no tachycardia, no tachypnea, blood work without leukocytosis, still awaiting urinalysis and chest x-ray Patient wishes to be DNR DNI Care will be signed out to incoming provider Differential Diagnosis Differential Diagnoses: The differential diagnosis associated with the presentation includes UTI, pneumonia, dehydration, failure to thrive, trauma Admission/Observation Consideration of admission/observation: Escalation of care including admission/observation considered Lab Data 10/02/24 15:02 10/02/24 15:02 Labs: Lab Results 10/02/24 10/02/24 Range/Units 15:02 16:42 WBC 7.5 (4.8-10.8) X10*3/uL RBC 3.81 L (4.60-5.80) X10*6/uL Hgb 12.6 L (14.0-18.0) g/dl Hct 36.7 L (42.0-52.0) % MCV 96.3 (80.0-98.0) fL MCH 33.1 H (27.0-33.0) pg MCHC 34.3 (31.0-36.0) g/dl RDW 12.3 (11.0-16.0) % Plt Count 252 (160-400) X10*3/uL MPV 9.5 (9.4-12.4) fL Immature Gran % (Auto) 0.4 (0.0-0.4) % Neut % (Auto) 76.9 H (45-73) % Lymph % (Auto) 9.8 L (20-40) % Travis % (Auto) 10.0 (2-11) % Eos % (Auto) 2.5 (0-4) % Baso % (Auto) 0.4 (0-2) % Lymph # (Auto) 0.7 L (1.2-4.9) X10*3/uL Travis # (Auto) 0.8 (0.1-1.2) X10*3/uL Eos # (Auto) 0.2 (0.0-0.4) X10*3/uL Baso # (Auto) 0.0 (0.0-0.2) X10*3/uL Abs Immat Gran (auto) 0.03 (0.00-0.03) X10*3/uL Absolute Neuts (auto) 5.7 (2.0-8.3) x10*3/uL Absolute Nucleated RBC 0.000 (0.0-0.012) X10*3/uL Nucleated RBC % (auto) 0.0 (0.0-0.2) /100WBC Sodium 135 (135-145) mmol/L Potassium 4.3 (3.3-5.1) mmol/L Chloride 101 (96-108) mmol/L Carbon Dioxide 28 (22-29) mmol/L Anion Gap 10 L (12-20) BUN 22 H (9-16) mg/dL Creatinine 0.85 (0.5-1.4) mg/dL Estim Creat Clear Calc 62.0 Estimated GFR > 60 Random Glucose 102 (60-115) mg/dL Calcium 9.6 (8.4-10.2) mg/dL Total Bilirubin 0.8 (0.0-1.0) mg/dL Direct Bilirubin 0.3 (0.0-0.5) mg/dL AST 27 (5-37) U/L ALT 21 (0-40) U/L Alkaline Phosphatase 169 H (39-117) U/L Troponin I High Sens 8.4 (<3.5-35.0) ng/L B-Natriuretic Peptide 80 (<100) pg/mL Total Protein 6.6 (6.5-8.0) g/dL Albumin 4.0 (3.5-5.0) g/dL Lipase 40 (8-78) U/L Urine Color Dark Yellow Urine Appearance Clear Urine pH 7.0 (5.0-9.0) Ur Specific [place] 1.020 (1.005-1.025) Urine Protein 30 (1+) H (Neg-Trace) mg/dL Urine Glucose (UA) Negative (Negative) mg/dL Urine Ketones Trace (Negative) mg/dL Urine Blood Moderate (2+) H (Negative) Urine Nitrite Negative (Negative) Ur Leukocyte Esterase Negative (Negative) Urine RBC >20 H (0-2) /HPF Urine WBC 0-5 (0-5) /HPF Ur Squamous Epith Cells 0-2 (0-2) /HPF Urine Bacteria None Seen (None Seen) Hyaline Casts 0-2 (0-2) /LPF Influenza Type A (PCR) NEGATIVE (Negative) Influenza Type B (PCR) NEGATIVE (Negative) RSV RNA Qual (PCR) NEGATIVE (Negative) SARS-CoV-2 RNA (RT-PCR) NEGATIVE (Negative) Discharge Plan Discharge Clinical Impression: Adult failure to thrive Prescriptions: No Action metoprolol tartrate 50 mg tablet 50 mg PO BID fluticasone propion-salmeterol [Wixela Inhub] 100-50 mcg/dose blister with device 1 ea INHALATION BID tamsulosin 0.4 mg capsule 0.4 mg PO BEDTIME multivitamin Tablet 1 tab PO DAILY Rx Instructions: pt takes at home at noon cholecalciferol (vitamin D3) 25 mcg (1,000 unit) capsule 25 mcg PO DAILY Rx Instructions: pt takes at noon at home Referrals: [facility] [Outside] ([id number]) Print Language: Egyptian
--- NOTE | 2024-10-02 16:15 | PC.NURSE ---
got the pt up standing to get a urine sample, it took two staff members to get the pt standing, pt quite unstable on his feet, pt is unable to urinate at this time
--- NOTE | 2024-10-02 16:49 | PC.NURSE ---
pt was bladder scanned per MD order, found to have 218 ml in bladder. Straight cathed with 200ml drainage. Urine sample sent to lab.
[2024-10-02 16:52] LABS: Appearance Urine Clear; Color Urine Dark Yellow; Glucose Urine UA Negative (Negative); Leukocyte Esterase Urine Negative (Negative); Nitrite Urine Negative (Negative); UMIC TRIGGER UACC YES; Urine Blood Moderate (2+) (Negative); Urine Ketones Trace mg/dL (Negative); Urine Protein 30 (1+) mg/dL (Neg-Trace)
[2024-10-02 16:55] LABS: Bacteria Urine None Seen (None Seen); Hyaline Casts Urine 0-2 /LPF (0-2); RBC Urine >20 /HPF (0-2); Squamous Epithelial Cell Urine 0-2 /HPF (0-2); WBC Urine 0-5 /HPF (0-5)
[2024-10-02] MEDS: 0.9 % Sodium Chloride 500 ML IV (16:56)
--- OUTSIDE RECORDS SUMMARY | 2024-10-02 17:58 | XMS_ITS ---
Author Organization [facility] Address [address] [place] [id number] Care Team Providers Care Incendiaries Supervisor Name Role Phone Surya Pro Primary Care Provider Yelena Hargrove [phone] Salter Encounters Encounter Location Date Provider Diagnosis [address] [id number] 05/05/2024 Yelena Hargrove Plan Of Treatment Next Appt Details Provider Name:Yelena Collins Delvin , 11/06/2024 09:00:00 AM, [address] [place] [address], [phone], Provider Name:Yelena Collins Delvin , 02/02/2025 09:00:00 AM, [address] [place] [address], [phone], Progress Notes * Kamari SCHWAB CDOB: [birth year] (89 yo M)Acc No.[id number]:05/05/2024 Progress Note Patient:?Kamari SCHWAB Provider:Emma Hargrove DPM :1935???Age:88 Y???Sex:Male Geovany e:05/05/2024 Address:[address] [place], [place] [id number] Pcp:Surya Pro Subjective: * Chief Complaints: * [...] Provider:?Yelena Hargrove DPM Date:?2024 Generated for Louisa good/Bandar/Antolin on:?10/02/2024 05:57 PM EDT
--- NOTE | 2024-10-02 18:37 | PHA.MEDREC ---
Pharmacy Consult ? Medication Reconciliation Pharmacy has reviewed the medication reconciliation completed by nursing.
[2024-10-02] MEDS: Metoprolol Tartrate 50 MG TABLET PO (20:20)
[2024-10-02] MEDS: Tamsulosin HCL 0.4 MG CAPSULE PO (20:20)
[2024-10-02] MEDS: Melatonin 3 MG TABLET 6 MG PO (20:20)
[2024-10-03] VITALS (9 sets, daily range): BP systolic 136–173; BP diastolic 76–88; PULSE 62–74; RESP 16–20; TEMP 36.4–36.7; O2SAT 95–98
[2024-10-03] MEDS: Fluticasone/Vilanterol 100/25 BLST.W.DEV 1 PUFF INHALE (08:07)
[2024-10-03] MEDS: Cholecalciferol (Vitamin D3) 25 MCG TABLET PO (09:04)
[2024-10-03] MEDS: Metoprolol Tartrate 50 MG TABLET PO (09:04)
[2024-10-03] MEDS: Multivitamin TABLET 1 TAB PO (09:04)
[2024-10-03] MEDS: Acetaminophen 325 MG TABLET 650 MG PO (09:09)
--- NOTE | 2024-10-03 10:10 | MHC.CM.ED ---
Received case management consult overnight. Patient came to the ER due to a fall and weakness. Work up essentially negative. Physical therapy eval completed. Short term rehab is recommended. It does not appear has been inpatient in any facility in the past 30 days. Referral made to all 3 acute rehab facilities. No acute rehab bed offers at this time. Met with patient and , Daniela, in regards to discharge planning. Patient lives with Daniela, ambulates with a walker and had no services prior to coming to the ER. PCP verified. Copy of HCP verified to be on file. Daniela verifies patient has not been inpatient in any facility in the past 30 days. Discharge options of privately paying for SNF vs home with VNA discussed. Patient has been to [facility] on [address]. Patient and Daniela request no referrals be made to [facility] or [facility]. [facility] choice. Patient and Daniela aware if [facility] is unable to offer a bed, referral will be broadcasted for private pay bed options. Continue to monitor for d/c needs.
--- NOTE | 2024-10-03 12:43 | MHC.CM.ED ---
[facility] is able to offer a private pay bed. Finanacials arranged between building and , Daniela, Patient can leave at 3pm. Shilpi ESCALERA booked. Med nec with chart. Patient, Ira Suarez RN and Pilar CASTELLANOS aware. Continue to monitor for d/c needs.
== END 2024-10-03 15:49 | disposition skilled nursing facility (03) ==
PROVIDERS: Emergency Provider Emergency Medicine; PCP Internal Medicine
DX: R60.0 Localized edema (principal); F09 Unspecified mental disorder due to known physiological condition; R62.7 Adult failure to thrive; I45.10 Unspecified right bundle-branch block; R06.02 Shortness of breath; R94.31 Abnormal electrocardiogram [ECG] [EKG]; R26.81 Unsteadiness on feet; Z79.899 Other long term (current) drug therapy; Z87.891 Personal history of nicotine dependence; Z03.818 Encounter for observation for suspected exposure to other biological agents ruled out
CPT/HCPCS: 0241U; 36415; 71045; 80048; 80076; 81001; 83690; 83880; 84484; 85025; 93005; 94640; 96360; 97162; 99285

== ENCOUNTER → 2024-10-02 14:49 | Outpatient (BNV) | payer MEDICARE, SELFPAY | PROVIDERS: Emergency Provider Emergency Medicine; PCP Internal Medicine; Visit Provider Internal Medicine | DX: I44.0 Atrioventricular block, first degree (principal); I45.10 Unspecified right bundle-branch block | CPT/HCPCS: 93010 ==

== ENCOUNTER → 2024-10-02 16:02 | Outpatient (BNV) | payer MEDICARE, SELFPAY | PROVIDERS: Emergency Provider Emergency Medicine; PCP Internal Medicine; Visit Provider Radiology Diagnostic Radiology | DX: M19.012 Primary osteoarthritis, left shoulder (principal) | CPT/HCPCS: 71045 ==

== ENCOUNTER 2024-11-24 09:30 | Outpatient (AMB) | payer MEDICARE, SELFPAY ==
--- OUTSIDE RECORDS SUMMARY | 2024-05-05 05:00 | XMS_ITS ---
Author Organization [facility] Address [address] [place] [id number] Care Team Providers Care Landscaping Manager Name Role Phone Surya Pro Primary Care Provider [phone] Yelena Hargrove Unavailable [phone] Salter Encounters Encounter Location Date Provider Diagnosis [address] [id number] 05/05/2024 Yelena Hargrove Plan Of Treatment Next Appt Details Provider Name:Yelena Collins Delvin , 12/24/2024 03:00:00 PM, [address] [place] [address], [phone], Provider Name:Yelena Collins Delvin , 02/02/2025 09:00:00 AM, [address] [place] [address], [phone], Progress Notes * Kamari SCHWAB CDOB: [birth year] (89 yo M)Acc No.[id number]:05/05/2024 Progress Note Patient: Kamari BARBOSA Provider: Jeramie Hargrove DPM :1935 A ge:88 Y S ex:Male Date:05/05/2024 Address:[address] [place], [place] [id number] Pcp:Surya Pro Subjective: * Chief Complaints: * [address] Salter. * Medical History: Objective: * Vitals: Assessment: Plan: * Treatment: * Images: * The named appointment provid er may or may not be the originator of this progress note, and it is not deemed complete until electronically signed by the appointment provider. Sign off status: Pending * Provider: Jeramie Hargrove DPM Date: 0 05/05/2024 Generated for Louisa good/Bandar/Antolin on: 0 11/24/2024 10:19 AM EDT
--- NOTE | 2024-11-24 09:27 | A.OFFPC_ITS ---
Vital Signs 11/24/24 09:30 Height 5 ft 10 in Weight 160 lb BMI 23.0 BMI Reason not done Palliative Care Patient BP 108/58 L Blood Pressure Location Rt brachial Position Sitting Respiration 16 Pulse 63 Pulse Source Pulse Oximeter Temp 97.3 F Temp Source Temporal Artery Scan Pulse Oximetry (%) 96 Oxygen Delivery Method Room Air Intake Visit Reasons: S/P rehab D/C 11/17/24 Toy Stuffer Required: No Accompanied by: Spouse Allergies No Known Allergies (No Known Allergies*) Allergy (Verified 11/24/24 09:28) Tobacco use date assessed: 08/27/24 Dental Screening Dental Screen Date: 08/27/24 [facility] Medical History Benign enlargement of prostate Essential hypertension Family History Mother Breast cancer Father Lopez Swanson attack Social History Housing: House Patient Tobacco Use Status: Former Tobacco user e-Cigarette/Vaping Use: Former Use Advance Directives Date on File: 09/04/23 service: No Current occupational status: retired Cognitive needs: No Hearing needs: No Vision needs: Yes (reading glasses) Questionnaire Thrive Questionnaire Date Thrive assessed: 08/27/24 SOUMYA-7 AMB Questionnaire SOUMYA-7 Date SOUMYA - 7 assessed: 08/27/24 Source: Developed by Drs. Carlos Limon, Melissa Gage, Tin Cote and colleagues, with an educational nichole from [employer]. Physical exam (Primary Care) Vital Signs: Last Vital Signs Temp 97.3 F 11/24/24 09:30 Pulse 63 11/24/24 09:30 Resp 16 11/24/24 09:30 BP 108/58 L 11/24/24 09:30 Pulse Ox 96 11/24/24 09:30 Oxygen Delivery Method Room Air 11/24/24 09:30 BMI result Body Mass Index 23.0 Tobacco/Smoking Status: Tobacco use Status Tobacco use date assessed 08/27/24 11/24/24 09:33 Patient Tobacco Use Status Former Tobacco user 11/24/24 09:33 e-Cigarette/Vaping Use Former Use 11/24/24 09:33 Thrive Assessment: Date of Thrive Assessment Date Thrive assessed 08/27/24 11/24/24 09:33 Coding Level of Care Code Est Pt Level 4 (88228) Complex EM visit Add On G2211 Diagnoses Weakness R53.1 Assessment & Plan Assessment & Plan (1) Weakness: Code(s): R53.1 - Weakness Plan: History of Present Illness - The patient is an 89-year-old male presenting with follow-up for respiratory failure and aspiration pneumonia. - The patient experienced an episode where he was unable to walk, leading to hospitalization. - During hospitalization, a urinary tract infection was suspected but not confirmed. - The patient aspirated food, resulting in aspiration pneumonia. - Imaging and tests revealed a meningioma, which is being monitored. - The patient was discharged to a rehabilitation facility for occupational, physical, and speech therapy. - Currently receiving home visits for physical and occupational therapy twice a week, expected to reduce to once a week after four weeks. - The patient has difficulty with stairs, requiring assistance to leave the house. - Prostate issues have led to the use of incontinence products, improving sleep quality. Social History - The patient lives in a house with the main bathroom and bedroom on the first floor, which aids in mobility. - The patient previously attended a senior center weekly but currently does not due to mobility issues. Review of Systems - Neurological: Reports difficulty with ambulation, improved but still present. - Respiratory: Denies current respiratory distress. - Genitourinary: Reports prostate issues, uses incontinence products. - Sleep: Reports improved sleep quality with the use of incontinence products. Physical Exam General: Cooperative and healthy appearing Nutritional Appearance: Well nourished Orientation/consciousness: Patient oriented x3 Limitations: No limitations Head: Normal to inspection General: Appearance normal, both eyes and all related structures Neck: Normal visual inspection Chest: Normal palpation of entire chest wall Respiratory: Patient had respiratory failure and aspiration pneumonia. ormal respiratory effort Neurology: Patient oriented x3, discovered to have a meningioma. Results - Imaging: CT scan revealed a meningioma. Plan 1. Respiratory Failure - Continue with physical therapy to improve respiratory function and overall strength. 2. Aspiration Pneumonia - Monitor for any signs of recurrent aspiration and manage accordingly. 3. Meningioma - Regular monitoring of the meningioma with follow-up imaging as needed. 4. Prostate Issues - Continue using incontinence products to manage symptoms and improve sleep quality. Discussion Notes During the visit, we discussed the importance of continuing physical therapy to enhance respiratory function and overall strength. We also emphasized monitoring for any signs of recurrent aspiration pneumonia and managing it promptly. The meningioma will be regularly monitored with follow-up imaging as needed. For prostate issues, the use of incontinence products was recommended to improve sleep quality. Follow-up appointments were scheduled to ensure ongoing care and monitoring of these conditions. Patient Instructions - Continue with physical therapy sessions as scheduled. - Monitor for any signs of aspiration and seek medical attention if symptoms occur. - Use incontinence products as needed to improve sleep quality. - Attend all follow-up appointments for ongoing monitoring and care.
[2024-11-24 09:30] VITALS: BP 108/58; PULSE 63; RESP 16; TEMP 36.3; O2SAT 96; BMI 23.0
--- OUTSIDE RECORDS SUMMARY | 2024-11-24 10:19 | XMS_ITS | Patient Health Record ---
Author Organization [facility] Address [address] [place] [address] Care Team Providers Care Inside Sales Lead Name Role Phone Calros Tabor Unavailable [phone] Reason For Referral No Information Plan Of Treatment No Information
--- OUTSIDE RECORDS SUMMARY | 2024-11-24 10:19 | XMS_ITS ---
Author Organization [facility] M[facility] [place] Care Team Providers Care Spray Gun Repairer Helper Name Role Phone Js Thomas Unavailable Unavailable Rima Morris Unavailable Unavailable Alix Tavares Unavailable Unavailable Gris Camacho Unavailable Unavailable Allergies and adverse reactions No Known Allergies Care Team Name Role Address Phone Organization Dates Js Thomas [address] [place] [address], [phone], [place] (Office): : : [facility] [place] 09/14/2023 - 11/07/2023 Rima Morris [address] [facility] [address], [place], [address], [place] (Office): : Renaaliyah Cunningham on [place] 09/14/2023 - 11/07/2023 Alix Tavares [address] [facility] [address], [place], [address], [place] (Office): : : Miki Meredith on [place] 09/14/2023 - 11/07/2023 [place], [phone], [facility] (Office): : : Miki Meredith on [place] 09/14/2023 - 11/07/2023 Immunizations Immunization Status Vaccine Details Vaccine Code CodeSystem Date Notes TB 1 Step Mantoux (PPD) completed tuberculin skin test; purified protein derivative solution, intradermal lotNumber: [id number] expiry: 07/28/2024 Mfg: APSOLOL 5TU/0.1ml Given 0.1 ml Left Forearm intradermally 96 CVX created date: 09/15/2023 consent date: 09/14/2023 administer ed date: 09/15/2023 TB 2 Step Mantoux Skin Test completed tuberculin skin test; purified protein derivative solution, intradermal lotNumber: [id number] expiry: 07/28/2024 Mfg: Aplisol 5TU/0.1ml Given 0.1 ml Right Forearm intradermally Step 1 of Multi-step with next step required 96 CVX created date: 09/29/2023 consent date: 09/28/2023 administer ed date: 09/29/2023 pneumococcal, unspecified formulation cancelled pneumococcal vaccine, unspecified formulation 109 CVX created date: 09/17/2023 consent date: 09/17/2023 Educated by Sultana Castrejon on 09/17/2023 Medications Section Medication Name Status Code CodeSystem Dose Route Frequency Admin Type Sig Text Start Date End Date Acetaminophen Tablet 325 MG active 977088 RXNORM 2 tablet Oral as needed PRN Give 2 tablet by mouth every 4 hours as needed for Mild Pain More than 3 doses in 48 hours, notify physic kiana/leonela samayoa practi ce provid er(JET ).Do not exceed 3g/day . (stand ing order) 2023 - Acetaminophen Tablet 325 MG active 911180 RXNORM 2 tablet Oral as needed PRN Give 2 tablet by mouth every 6 hours as needed for Temp 100F or above Notify Physic kiana/Leonela Jimenez provid er. Do not exceed 3g/day 2023 - Milk of Magnesia Suspension 400 MG/5ML active 598891 RXNORM 30 ml Oral as needed PRN Give 30 ml by mouth as needed for Consti pation give at bedtim e if no BM in 3 days 2023 - Fleet Enema Enema 7-19 GM/118ML active 836253 RXNORM 1 dose Rectal as needed PRN Insert 1 dose rectal ly as needed for Consti pation if no result from Dulcol ax within 2 hours. If no result s from Fleet enema, call /sophie jimenez provid er (JET) for furthe r orders . 2023 - MiraLax Powder active 169627 RXNORM 17 gram Oral as needed PRN Give 17 gram by mouth as needed for Consti pation in 4 to 8 ounces of fluid- if reside nt has not had a bowel moveme nt in past 72 hours. 2023 - Dulcolax Suppository 10 MG active 206187 RXNORM 1 suppos itory Rectal as needed PRN Insert 1 suppos itory rectal ly as needed for Consti pation if no result from MOM by next shift 2023 - Melatonin Tablet 3 MG active 559349 RXNORM 1 tablet Oral at bedtime Routine Give 1 tablet by mouth at bedtim e for sleep aid 2023 - Multiple Vitamins-Mine rals Tablet active 7895278 RXNORM 1 tablet Oral one time a day Routine Give 1 tablet by mouth one time a day for Supple ment 2023 - Lidoderm Patch 5 % active 2603033 RXNORM n/a n/a Topical one time a day Routine Apply to back topica lly one time a day for back pain at bedtim e remove 2023 - Cholecalcifer ol Tablet 1000 UNIT active 301704 RXNORM 1 tablet Oral one time a day Routine Give 1 tablet by mouth one time a day for supple ment 2023 - Colace Capsule 100 MG active 3479224 RXNORM 1 capsul e Oral two times a day Routine Give 1 capsul e by mouth two times a day for Consti pation 2023 - Flomax Capsule 0.4 MG active 405260 RXNORM 1 capsul e Oral at bedtime Routine Give 1 capsul e by mouth at bedtim e for benign prosta tic hyperp lasia 2023 - Breo Ellipta Aerosol Powder Breath Activated 100-25 MCG/INH active 9678148 RXNORM 1 inhala tion Inhalat ion one time a day Routine 1 inhala tion inhale orally one time a day for COPD Rinse mouth after each use 2023 - Metoprolol Tartrate Oral Tablet 75 MG active 7352353 RXNORM 1 tablet Oral two times a day Routine Give 1 tablet orally two times a day for HTN Hold for SBP < 112 2023 - TraZODone HCl Tablet 50 MG active 848995 RXNORM 1 tablet Oral at bedtime Routine Give 1 tablet by mouth at bedtim e for depres dilan 2023 - AmLODIPine Besylate Tablet 5 MG active 277189 RXNORM 1 tablet Oral one time a day Routine Give 1 tablet by mouth one time a day for htn. 2023 - oxyCODONE HCl Oral Tablet 5 MG active 4535503 RXNORM 2.5 mg Oral as needed PRN Give 2.5 mg by mouth every 12 hours as needed for BID for pain PRN modera te or severe pain 2023 - Mental Status Section Date Assessment Total Score Description 11/07/2023 BIMS 15 cognitively int act CAM 0 No delirium ind icated PHQ-9 00 09/18/2023 BIMS 15 cognitively int act CAM 0 No delirium ind icated PHQ-9 00 Problems Problem # Description Date of onset Resolved Date Code CodeSystem Concern Status 1 OTHER SYMPTOMS AND SIGNS INVOLVING COGNITIVE FUNCTIONS AND AWARENESS 09/17/[address] active 2 ANXIETY DISORDER, UNSPECIFIED 09/14/[address] active 3 BENIGN PROSTATIC HYPERPLASIA WITHOUT LOWER URINARY TRACT SYMPTOMS 09/14/[address] active 4 CHRONIC OBSTRUCTIVE PULMONARY DISEASE, UNSPECIFIED 09/14/[address] active 5 ESSENTIAL (PRIMARY) HYPERTENSION 09/14/[address] active 6 HEMIPLEGIA AND HEMIPARESIS FOLLOWING CEREBRAL INFARCTION AFFECTING LEFT NON-DOMINANT SIDE 09/14/[address] active 7 UNSPECIFIED FALL, SUBSEQUENT ENCOUNTER 09/14/[address] active 8 UNSTEADINESS ON FEET 09/14/[address] active 9 WEDGE COMPRESSION FRACTURE OF FOURTH LUMBAR VERTEBRA, SUBSEQUENT ENCOUNTER FOR FRACTURE WITH ROUTINE HEALING 09/14/[address] active Reason for Referral No Reasons for Referral Entered Social History Social History Observation Description Start Date End Date Code Code System Current Smoking Status Tobacco smoking consumption unknown 538531640 SNOMED CT Sex Assigned At Male 1935 57855-8 [facility] Gender Identity Vital Signs Code Code System Vitals Name Values and Units Timing Information 8462-4 [facility] Blood Pressure-Diastolic Value=72 Un its=mmHg 11/07/2023 8480-6 [facility] Blood Pressure-Systolic Fhjpl=944 Un its=mmHg 11/07/2023 62404-5 [facility] Pain Level Value=0.0 11/07/2023 9279-1 [facility] Respiratory Rate Value=18.0 Units=/m in 11/06/2023 8310-5 [facility] Body Temperature Value=98.0 Units= F 11/06/2023 8867-4 [facility] Heart rate Value=84.0 Units=/min 12/2023 28646-9 [facility] O2 % BldC Oximetry Value=96.0 Units= % 11/06/2023 92460-5 [facility] Weight Ysuys=796.6 Units=Lbs 04/2023 2339-0 [facility] Blood Sugar Zwgtj=985.0 Units=mg/dL 09/15/2023 8302-2 [facility] Height Value=69.0 Units=Inches 09/14/2023
--- OUTSIDE RECORDS SUMMARY | 2024-11-24 10:19 | XMS_ITS | Encounter Summary ---
Author Organization [facility] Address [address] [place] [id number] Care Team Providers Care Brooch Maker Novelty Name Role Phone Eduardo Scott MD Primary Care Provider [phone] Encounter Details Date Type Department Care Team (Late st Contact Info) Description 10/08/2024 Lab Requisition [facility] - Main Lab [address] [facility] [place] [address] Eduardo Scott MD [address] [place] [phone] Essential (primary) hypertension Social History Tobacco Use Types Packs/Day Years Used Date Smoking Tobacco: Never Assessed Sex and Gender Information Value Date Recorded Sex Assigned at Not on file Legal Sex Male 1:39 PM EDT Gender Identity Not on file Sexual Orientation Not on file documented as of this encounter Plan of Treatment Not on file documented as of this encounter Visit Diagnoses Diagnosis Essential (primary) hypertension Unspecified essential hypertension documented in this encounter Care Teams Brooch Maker Novelty Relationship Specialty Start Date End Date Eduardo Scott MD [address] [place] [phone] PCP - General Internal Medicine 10/07/24 documented as of this encounter
== END 2024-11-24 09:46 | disposition home or self-care (01) ==
PROVIDERS: PCP Internal Medicine; Visit Provider Internal Medicine
DX: R53.1 Weakness (principal)

== ENCOUNTER → 2024-11-24 09:30 | Outpatient (BNVA) | payer MEDICARE, SELFPAY | PROVIDERS: PCP Internal Medicine; Visit Provider Internal Medicine | DX: R53.1 Weakness (principal) | CPT/HCPCS: 99212 ==

== ENCOUNTER 2025-02-04 09:42 | Outpatient (AMB) | payer MEDICARE, SELFPAY ==
--- NOTE | 2025-02-04 09:46 | MHC.PC.OV ---
Vital Signs 02/04/25 09:47 Height 5 ft 10 in BMI Reason not done Patient refused/unable BP 116/54 L Blood Pressure Location Lt brachial Position Sitting Respiration 18 Pulse 55 Pulse Source Pulse Oximeter Temp 98.0 F Temp Source Temporal Artery Scan Pulse Oximetry (%) 95 Oxygen Delivery Method Room Air Intake Visit Reasons: 6 Month F/U Hand Blocker Required: No Accompanied by: Spouse Allergies No Known Allergies (No Known Allergies*) Allergy (Verified 02/04/25 09:46) Medication List - Last Reconciled 02/04/25 by Tristan Villasenor MD cholecalciferol (vitamin D3) 25 mcg PO DAILY fluticasone propion-salmeterol 100-50 mcg/dose (Wixela Inhub) 1 ea PO BID metoprolol tartrate 50 mg PO BID multivitamin 1 tab PO DAILY tamsulosin 0.4 mg PO BEDTIME Tobacco use date assessed: 08/27/24 Fall risk assessment: 1 Fall in past year Last assessed Fall Risk: 02/04/25 Dental Screening Dental Screen Date: 08/27/24 Did you have a dental visit in the last 12 months?: Yes Did you have a dental problem in the last 6 months where you did not have access to dental care?: No Was dental information given to patient?: Patient has dentist HPI HPI Comments History of Present Illness Details The patient is an 89-year-old male presenting with hearing concerns attributed to earwax buildup. Historically, he had routine consultations with Dr. Shi every three months for cerumen removal, but this regimen ceased after the [facility] in October. Consequently, the patient reported a decline in hearing acuity. There was no use of hearing aids, and the patient depended solely on mechanical extraction of wax by a healthcare provider since personal hygiene measures like Q-tip use were not feasible due to weakness in his left arm post-stroke in 2001. 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 - No recent cholesterol panel. Social History: - Lives with family, specifics on living arrangements not discussed. - Walks with a walker but uses a wheelchair for longer distances due to difficulty walking long distances. [facility] Medical History Benign enlargement of prostate Essential hypertension Family History Mother Breast cancer Father Lopez Swanson attack Social History Housing: House Patient Tobacco Use Status: Former Tobacco user Years Smoked: 14 years-quit at 31 years e-Cigarette/Vaping Use: Never Used Advance Directives Date on File: 09/04/23 service: No Current occupational status: retired Cognitive needs: No Hearing needs: No Vision needs: Yes (reading glasses) Questionnaire Thrive Questionnaire Date Thrive assessed: 08/27/24 AUDIT C Alcohol Use Questionnaire (AUDIT-C) 1. How often do you have a drink containing alcohol?: Never 3. How often do you have six or more drinks on one occasion?: Never Total Score: 0 SOUMYA-7 AMB Questionnaire SOUMYA-7 Date SOUMYA - 7 assessed: 08/27/24 Source: Developed by Drs. Carlos Limon, Melissa Gage, Tin Cote and colleagues, with an educational nichole from [employer]. Review of Systems Const Details: - General: Denies any fatigue, fever, or unexpected weight loss. - ENT: Complaints of diminished hearing. - Cardiovascular: Denies chest pain. - Respiratory: Denies shortness of breath. - Gastrointestinal: Denies nausea, vomiting, diarrhea, or constipation. - Genitourinary: Denies difficulty urinating but noted increased frequency. - Neurological: Left-sided weakness persisting since stroke. All systems reviewed & are unremarkable except as reviewed in HPI and above Physical exam (Primary Care) Vital Signs: Last Vital Signs Temp 98.0 F 02/04/25 09:47 Pulse 55 02/04/25 09:47 Resp 18 02/04/25 09:47 BP 116/54 L 02/04/25 09:47 Pulse Ox 95 02/04/25 09:47 Oxygen Delivery Method Room Air 02/04/25 09:47 Tobacco/Smoking Status: Tobacco use Status Tobacco use date assessed 08/27/24 02/04/25 09:47 Patient Tobacco Use Status Former Tobacco user 02/04/25 09:47 e-Cigarette/Vaping Use Never Used 02/04/25 09:55 Thrive Assessment: Date of Thrive Assessment Date Thrive assessed 08/27/24 02/04/25 09:47 Forms completed: MOLST Time spent: 1-15 minutes, on File Actual minutes spent: 7 Const Other: - General: Denies any fatigue, fever, or unexpected weight loss. - ENT: Complaints of diminished hearing. - Cardiovascular: Denies chest pain. - Respiratory: Denies shortness of breath. - Gastrointestinal: Denies nausea, vomiting, diarrhea, or constipation. - Genitourinary: Denies difficulty urinating but noted increased frequency. - Neurological: Left-sided weakness persisting since stroke. All systems reviewed & are unremarkable except as reviewed in HPI and above Coding Level of Care Code Est Pt Level 4 (64553) Complex EM visit Add On G2211 Diagnoses Essential hypertension I10 Benign prostatic hyperplasia without lower urinary tract symptoms N40.0 Lower urinary tract symptom presence: symptoms absent Bronchitis J40 Additional Codes Vital Signs *Quality* - Time spent: 1-15 minutes, on File ([id number]) Time Spent (min) 45 Assessment & Plan Assessment & Plan (1) Essential hypertension: Comment: - Blood pressure measured and noted to be adequately controlled with Metoprolol. Will continue current regimen. Code(s): I10 - Essential (primary) hypertension Category: Medical (2) Benign enlargement of prostate: Comment: - The patient experiences no significant urinary difficulty or retention. Management with tamsulosin will continue unchanged. Code(s): N40.0 - Benign prostatic hyperplasia without lower urinary tract symptoms Category: Medical Qualifiers: Lower urinary tract symptom presence: symptoms absent Qualified Code(s): N40.0 - Benign prostatic hyperplasia without lower urinary tract symptoms (3) Bronchitis: Comment: - The patient continues on Wixela; no acute exacerbations discussed. Code(s): J40 - Bronchitis, not specified as acute or chronic Category: Medical Plan: Health Maintenance: - Monitor cholesterol levels; bloodwork requisition was noted to be already sent to lab. - Advised obtaining flu and COVID-19 vaccinations from local pharmacy. Patient was informed and verbally consented to the use of an ambient scribe for clinic note documentation during this visit. Plan I discussed the importance of regular follow-ups for his chronic conditions, including his blood pressure and COPD management, especially considering his advanced age. We reviewed the detailed management of ear care due to previously frequent consultations for cerumen removal and determined that no further action is necessary at present. The patient was informed about the monitoring of cholesterol levels through routine laboratory testing, and I ensured he understood that vaccinations should be current. I recommended continued home exercises to maintain physical mobility and encouraged an active lifestyle within his ability. Orders: Orders Complete Blood Count Auto Diff Today I10 - Essential (primary) hypertension Comprehensive Met. Panel Today I10 - Essential (primary) hypertension Hemoglobin A1c Today I10 - Essential (primary) hypertension Lipid Panel Today I10 - Essential (primary) hypertension TSH reflex Free T4 Today I10 - Essential (primary) hypertension Patient Instructions: - Continue current medications as prescribed. - Follow home exercise plan given by your rehabilitation team. - Obtain flu and COVID-19 vaccinations at [facility]. - Return for follow-up appointments every four months or sooner if issues arise. - Keep the DNR form readily available at home.
[2025-02-04 09:47] VITALS: BP 116/54; PULSE 55; RESP 18; TEMP 36.7; O2SAT 95
== END 2025-02-04 10:20 | disposition home or self-care (01) ==
PROVIDERS: PCP Student in an Organized Health Care Education/Training Program; Visit Provider Student in an Organized Health Care Education/Training Program
DX: I10 Essential (primary) hypertension (principal); N40.0 Benign prostatic hyperplasia without lower urinary tract symptoms; J40 Bronchitis, not specified as acute or chronic; Z00.00 Encounter for general adult medical examination without abnormal findings

== ENCOUNTER → 2025-02-04 09:42 | Outpatient (BNVA) | payer MEDICARE, SELFPAY | PROVIDERS: PCP Internal Medicine; Visit Provider Student in an Organized Health Care Education/Training Program | DX: I10 Essential (primary) hypertension (principal); N40.0 Benign prostatic hyperplasia without lower urinary tract symptoms; J40 Bronchitis, not specified as acute or chronic; I69.354 Hemiplegia and hemiparesis following cerebral infarction affecting left non-dominant side; Z79.899 Other long term (current) drug therapy | CPT/HCPCS: 99212 ==

== ENCOUNTER 2025-02-17 09:32 | Outpatient (REF) | payer MEDICARE, SELFPAY ==
[2025-02-17 13:43] LABS: MANUAL DIFF FLAG NO
[2025-02-17 13:54] LABS: Hematocrit 37.9 % (42.0-52.0); Hemoglobin 12.8 g/dl (14.0-18.0); Imm Gran Abs Auto 0.03 X10*3/uL (0.00-0.03); Imm Gran Pct Auto 0.5 % (0.0-0.4); Lymphocytes Absolute Auto 1.2 X10*3/uL (1.2-4.9); Mean Corpuscular HGB Conc 33.8 g/dl (31.0-36.0); Mean Corpuscular Hemoglobin 32.9 pg (27.0-33.0); Mean Corpuscular Volume 97.4 fL (80.0-98.0); NRBC Abs Auto 0.000 X10*3/uL (0.0-0.012); NRBC Pct Auto 0.0 /100WBC (0.0-0.2); Platelet Count 263 X10*3/uL (160-400); Red Blood Count 3.89 X10*6/uL (4.60-5.80); White Blood Count 5.8 X10*3/uL (4.8-10.8)
[2025-02-17 14:07] LABS: Hemoglobin A1C 113.4393 umol/L
[2025-02-17 17:35] LABS: Alanine Aminotransferase 22 U/L (0-40); Albumin Level 3.9 g/dL (3.5-5.0); Alkaline Phosphatase 114 U/L (39-117); Anion Gap 11 (12-20); Aspartate Amino Transferase 27 U/L (5-37); Blood Urea Nitrogen 12 mg/dL (9-16); Calcium 9.2 mg/dL (8.4-10.2); Carbon Dioxide 26 mmol/L (22-29); Chloride 105 mmol/L (96-108); Cholesterol 162 mg/dL (<200); Estimated Glomerular Filt Rate > 60; HDL Cholesterol 62 mg/dL (>40); Potassium 4.2 mmol/L (3.3-5.1); Sodium 138 mmol/L (135-145); Total Protein 6.2 g/dL (6.5-8.0); Triglycerides 45 mg/dL (<150)
== END 2025-02-17 09:33 | disposition home or self-care (01) ==
LOC: HO.HMGCLDS 09:32
PROVIDERS: PCP Student in an Organized Health Care Education/Training Program; Visit Provider Student in an Organized Health Care Education/Training Program
DX: I10 Essential (primary) hypertension (principal); Z13.1 Encounter for screening for diabetes mellitus
CPT/HCPCS: 36415; 80053; 80061; 83036; 84443; 85025